=== PATIENT | female | born 1985 | race Caucasian/White ===

== ENCOUNTER 2017-03-23 16:28 | Inpatient (IN) | payer OTHER ==
[~2017-03-23] VITALS: Ht 160 cm; Wt 96.9 kg
[~2017-03-23 16:28] MED LIST: ALBU4 PO; ALBU90OI61 INH; AMIT10 PO; Augmentin 875-1 EACH PO; BUPR100 PO; BUPRENORPHINE HC2 MG SL; BUPRENORPHINE HC8 MG PO; BUSP10 PO; Budeprion Sr150 MG PO; Bupropion HCl100 M1 PO; CLON.1 PO; CODACE15 PO; CODACE30 PO; Catapres0.1 MG PO; Crutch1 EACH MISC; GABA800 PO; GUAI600T33 PO; IBUP400 PO; IBUP800 PO; IRON325 MG PO; LEVO750 PO; Neurontin 300300 MG PO; Norco 5-325 Ta1 EACH PO; PRED20 PO; PRENATAL VITAM1 EAC1 PO; PROM25 PO; QUET100 PO; RANI150 PO; Seroquel50 MG PO; Ultram50 MG PO; VARE1 PO; Veetids 500500 MG PO; Verotin-Gr Cap1 EACH PO; Vistaril25 MG PO; Zofran Odt4 MG SL
[2017-03-23 17:06] LABS: PCO2 Arterial 37.7 mmHg (35-45); PO2 Arterial 62.7 mmHg (80-100); pH Blood Arterial 7.36 (7.35-7.45)
[2017-03-23 17:06] LABS: BASOPHILS ABSOLUTE AUTO 0.09 K/mm3 (0.00-0.23); BASOPHILS PERCENT AUTO 0 % (0-2); Hematocrit 41.8 % (33.0-51.0); Hemoglobin 13.8 g/dL (11.5-16.0); LYMPHOCYTES ABSOLUTE AUTO 1.33 K/mm3 (0.84-5.20); LYMPHOCYTES PERCENT AUTO 6 % (21-46); MONOCYTES ABSOLUTE AUTO 0.53 K/mm3 (0.16-1.47); MONOCYTES PERCENT AUTO 2 % (4-13); Mean Corpuscular HGB 30.3 pg (26.0-34.0); Mean Corpuscular Volume 92 fL (80-100); Mean Platelet Volume 10.8 fL (9.1-12.4); Platelet Count 317 K/mm3 (150-400); RDW Coefficient Variation 15.9 % (11.7-14.2); RDW Standard Deviation 53.5 fL (35.1-46.3); Red Blood Cell Count 4.56 M/mm3 (3.80-5.20); White Blood Cell Count 23.15 K/mm3 (4.00-11.30)
[2017-03-23 17:09] LABS: EOSINOPHILS ABSOLUTE AUTO 0.02 K/mm3 (0.00-0.68); EOSINOPHILS PERCENT AUTO 0 % (0-6); IMMATURE GRAN ABSOLUTE AUTO 0.18 K/mm3 (0.00-0.10); IMMATURE GRAN PERCENT AUTO 1 % (0-1); NEUTROPHILS PERCENT AUTO 91 % (41-73)
[2017-03-23] MEDS ORDERED: FLUO10 PO (17:10)
[2017-03-23] MEDS ORDERED: SUBOXONE 8 MG-1 EACH SL (17:11)
[2017-03-23 17:28] LABS: Alanine Aminotransfer (ALT/SGP 31 U/L (12-78); Albumin, Blood 3.1 g/dL (3.4-5.0); Albumin/Globulin Ratio 0.7 (0.8-1.8); Alk Phos 200 U/L (50-136); Anion Gap 12 mmol/L (6-16); Aspartate Aminotrans (AST/SGOT 77 U/L (12-37); Bilirubin, Total 0.4 mg/dL (0.1-1.0); Blood Urea Nitrogen 6 mg/dL (8-24); Bun/Creatinine Ratio 13.4 (12.0-20.0); CO2, Blood 19 mmol/L (21-32); Calcium, Blood 8.6 mg/dL (8.5-10.1); Chloride, Blood 105 mmol/L (98-108); Creatinine, Blood 0.45 mg/dL (0.40-1.00); Globulin, Blood 4.5 g/dL (2.2-4.0); Glomerular Filtration Rate >60 (60-); Glucose, Blood 77 mg/dL (70-99); Sodium, Blood 136 mmol/L (136-145); Total Protein, Blood 7.6 g/dL (6.4-8.2)
[2017-03-23 17:29] LABS: Troponin I <0.015 ng/mL (0.000-0.040)
[2017-03-23 19:43] LABS: Influenza A Negative (NEGATIVE); Influenza B Negative (NEGATIVE)
[2017-03-23 22:29] LABS: Source, Urine Catheter
[2017-03-23 22:33] LABS: Bilirubin, Urine Neg (Neg); Blood, Urine Neg (Neg); Glucose Qualitative, Urine Neg (Neg); Ketones, Urine 2+ (Neg); Leukocyte Esterase, Urine Neg (Neg); Nitrite, Urine Neg (Neg); Protein, Urine 1+ (Neg); Specific Gravity, Urine 1.005 (1.003-1.022); Urobilinogen, Urine NORM (Normal); pH, Urine 6.5 (5.0-8.0)
[2017-03-23 22:34] LABS: Appearance, Urine Clear (Clear); Color, Urine Yellow (P-Yellow)
[2017-03-23 22:48] LABS: U Amphetamine Screen Not Detected; U Barbituate Screen Not Detected; U Benzodiazapine Screen Not Detected; U Buprenorphine Screen DETECTED; U Cannabinoids Screen Not Detected; U Cocaine Screen Not Detected; U Methadone Screen Not Detected; U Methamphetamine Screen Not Detected; U Opiates Screen Not Detected; U Oxycodone Screen Not Detected; U Phencyclidine Screen Not Detected; U Propoxyphene Screen Not Detected
[2017-03-24 03:50] LABS: BASOPHILS ABSOLUTE AUTO 0.03 K/mm3 (0.00-0.23); BASOPHILS PERCENT AUTO 0 % (0-2); EOSINOPHILS PERCENT AUTO 0 % (0-6); Hematocrit 38.6 % (33.0-51.0); Hemoglobin 12.5 g/dL (11.5-16.0); IMMATURE GRAN ABSOLUTE AUTO 0.11 K/mm3 (0.00-0.10); IMMATURE GRAN PERCENT AUTO 1 % (0-1); LYMPHOCYTES ABSOLUTE AUTO 0.74 K/mm3 (0.84-5.20); LYMPHOCYTES PERCENT AUTO 5 % (21-46); MONOCYTES ABSOLUTE AUTO 0.19 K/mm3 (0.16-1.47); MONOCYTES PERCENT AUTO 1 % (4-13); Mean Corpuscular HGB 29.8 pg (26.0-34.0); Mean Corpuscular HGB Conc 32.4 g/dL (31.5-36.5); Mean Corpuscular Volume 92 fL (80-100); Mean Platelet Volume 11.2 fL (9.1-12.4); NEUTROPHILS ABSOLUTE AUTO 15.31 K/mm3 (1.96-9.15); NEUTROPHILS PERCENT AUTO 93 % (41-73); Platelet Count 243 K/mm3 (150-400); RDW Standard Deviation 53.9 fL (35.1-46.3); White Blood Cell Count 16.38 K/mm3 (4.00-11.30)
[2017-03-24 04:11] LABS: Alanine Aminotransfer (ALT/SGP 24 U/L (12-78); Albumin, Blood 2.5 g/dL (3.4-5.0); Albumin/Globulin Ratio 0.6 (0.8-1.8); Alk Phos 159 U/L (50-136); Anion Gap 6 mmol/L (6-16); Aspartate Aminotrans (AST/SGOT 50 U/L (12-37); Bilirubin, Total 0.3 mg/dL (0.1-1.0); Blood Urea Nitrogen 6 mg/dL (8-24); Bun/Creatinine Ratio 13.3 (12.0-20.0); CO2, Blood 25 mmol/L (21-32); Calcium, Blood 7.8 mg/dL (8.5-10.1); Chloride, Blood 110 mmol/L (98-108); Creatinine, Blood 0.45 mg/dL (0.40-1.00); Globulin, Blood 4.1 g/dL (2.2-4.0); Glomerular Filtration Rate >60 (60-); Glucose, Blood 141 mg/dL (70-99); Potassium, Blood 3.9 mmol/L (3.5-5.5); Sodium, Blood 141 mmol/L (136-145); Total Protein, Blood 6.6 g/dL (6.4-8.2)
[2017-03-24 12:08] LABS: Vancomycin, Trough 12.3 ug/mL (5.0-10.0)
[2017-03-24 14:46] LABS: Adenovirus Not Detected (NOT DETECT)
[2017-03-24 14:47] LABS: Bordetella pertussis Not Detected (NOT DETECT); Chlamydophila pneumoniae Not Detected (NOT DETECT); Coronavirus 229E Not Detected (NOT DETECT); Coronavirus NL63 Not Detected (NOT DETECT); Coronavirus OC43 Not Detected (NOT DETECT); Human Metapneumovirus Not Detected (NOT DETECT); Human Rhinovirus/Enterovirus Not Detected (NOT DETECT); Influenza A/2009-H1 Not Detected (NOT DETECT); Influenza A/H1 Not Detected (NOT DETECT); Influenza A/H3 Not Detected (NOT DETECT); Influenza B Not Detected (NOT DETECT); Mycoplasma pneumoniae Not Detected (NOT DETECT); Parainfluenza Virus 1 Not Detected (NOT DETECT); Parainfluenza Virus 2 Not Detected (NOT DETECT); Parainfluenza Virus 3 Not Detected (NOT DETECT); Parainfluenza Virus 4 Not Detected (NOT DETECT); Respiratory Syncytial Virus Not Detected (NOT DETECT)
[2017-03-24 18:07] LABS: Influenza A Not Detected (NOT DETECT)
[2017-03-24 18:08] LABS: Coronavirus HKU1 Detected (NOT DETECT)
[2017-03-25 02:50] LABS: M. pneumoniae Ab, IgG 0.328 U/L (<0.100); M. pneumoniae Ab, IgM 0.379 U/L (<0.770)
[2017-03-25 04:35] LABS: BASOPHILS ABSOLUTE AUTO 0.02 K/mm3 (0.00-0.23); BASOPHILS PERCENT AUTO 0 % (0-2); EOSINOPHILS PERCENT AUTO 0 % (0-6); Hematocrit 34.5 % (33.0-51.0); Hemoglobin 10.8 g/dL (11.5-16.0); IMMATURE GRAN ABSOLUTE AUTO 0.14 K/mm3 (0.00-0.10); IMMATURE GRAN PERCENT AUTO 1 % (0-1); LYMPHOCYTES PERCENT AUTO 4 % (21-46); MONOCYTES ABSOLUTE AUTO 0.29 K/mm3 (0.16-1.47); MONOCYTES PERCENT AUTO 2 % (4-13); Mean Corpuscular HGB 29.7 pg (26.0-34.0); Mean Corpuscular HGB Conc 31.3 g/dL (31.5-36.5); Mean Platelet Volume 11.1 fL (9.1-12.4); NEUTROPHILS ABSOLUTE AUTO 15.23 K/mm3 (1.96-9.15); NEUTROPHILS PERCENT AUTO 94 % (41-73); Platelet Count 233 K/mm3 (150-400); RDW Coefficient Variation 16.3 % (11.7-14.2); RDW Standard Deviation 57.3 fL (35.1-46.3); Red Blood Cell Count 3.64 M/mm3 (3.80-5.20); White Blood Cell Count 16.28 K/mm3 (4.00-11.30)
[2017-03-25 04:52] LABS: Mean Corpuscular Volume 95 fL (80-100)
[2017-03-25 04:59] LABS: Alanine Aminotransfer (ALT/SGP 19 U/L (12-78); Albumin, Blood 2.3 g/dL (3.4-5.0); Albumin/Globulin Ratio 0.6 (0.8-1.8); Alk Phos 124 U/L (50-136); Anion Gap 6 mmol/L (6-16); Aspartate Aminotrans (AST/SGOT 38 U/L (12-37); Bilirubin, Total 0.2 mg/dL (0.1-1.0); Blood Urea Nitrogen 9 mg/dL (8-24); Bun/Creatinine Ratio 20.3 (12.0-20.0); CO2, Blood 27 mmol/L (21-32); Calcium, Blood 7.8 mg/dL (8.5-10.1); Chloride, Blood 111 mmol/L (98-108); Creatinine, Blood 0.44 mg/dL (0.40-1.00); Globulin, Blood 3.8 g/dL (2.2-4.0); Glomerular Filtration Rate >60 (60-); Glucose, Blood 128 mg/dL (70-99); Magnesium, Blood 2.2 mg/dL (1.6-2.4); Sodium, Blood 144 mmol/L (136-145); Total Protein, Blood 6.1 g/dL (6.4-8.2)
[2017-03-25 18:07] LABS: RNP/SM Ab IgG 0.4 AI (<1.0)
[2017-03-25 18:32] LABS: C3 129 mg/dL (90-200); C4 25.6 mg/dL (15.0-55.0)
[2017-03-25 22:46] LABS: PCO2 Arterial 45.1 mmHg (35-45); PO2 Arterial 114 mmHg (80-100); pH Blood Arterial 7.39 (7.35-7.45)
[2017-03-26 04:22] LABS: BASOPHILS ABSOLUTE AUTO 0.01 K/mm3 (0.00-0.23); BASOPHILS PERCENT AUTO 0 % (0-2); EOSINOPHILS ABSOLUTE AUTO 0.01 K/mm3 (0.00-0.68); EOSINOPHILS PERCENT AUTO 0 % (0-6); Hematocrit 35.2 % (33.0-51.0); Hemoglobin 11.2 g/dL (11.5-16.0); IMMATURE GRAN ABSOLUTE AUTO 0.11 K/mm3 (0.00-0.10); IMMATURE GRAN PERCENT AUTO 1 % (0-1); LYMPHOCYTES ABSOLUTE AUTO 0.56 K/mm3 (0.84-5.20); LYMPHOCYTES PERCENT AUTO 7 % (21-46); MONOCYTES ABSOLUTE AUTO 0.14 K/mm3 (0.16-1.47); MONOCYTES PERCENT AUTO 2 % (4-13); Mean Corpuscular HGB 29.9 pg (26.0-34.0); Mean Corpuscular HGB Conc 31.8 g/dL (31.5-36.5); Mean Corpuscular Volume 94 fL (80-100); Mean Platelet Volume 10.6 fL (9.1-12.4); NEUTROPHILS ABSOLUTE AUTO 7.52 K/mm3 (1.96-9.15); NEUTROPHILS PERCENT AUTO 90 % (41-73); Platelet Count 225 K/mm3 (150-400); RDW Coefficient Variation 16.6 % (11.7-14.2); RDW Standard Deviation 56.4 fL (35.1-46.3); Red Blood Cell Count 3.75 M/mm3 (3.80-5.20); White Blood Cell Count 8.35 K/mm3 (4.00-11.30)
[2017-03-26 04:38] LABS: Anion Gap 6 mmol/L (6-16); Blood Urea Nitrogen 7 mg/dL (8-24); Bun/Creatinine Ratio 12.4 (12.0-20.0); CO2, Blood 28 mmol/L (21-32); Calcium, Blood 8.2 mg/dL (8.5-10.1); Chloride, Blood 110 mmol/L (98-108); Creatinine, Blood 0.57 mg/dL (0.40-1.00); Glomerular Filtration Rate >60 (60-); Glucose, Blood 129 mg/dL (70-99); Magnesium, Blood 2.2 mg/dL (1.6-2.4); Phosphorus, Blood 3.2 mg/dL (2.5-4.9); Potassium, Blood 4.1 mmol/L (3.5-5.5); Sodium, Blood 144 mmol/L (136-145)
[2017-03-27 04:02] LABS: BASOPHILS PERCENT AUTO 0 % (0-2); EOSINOPHILS PERCENT AUTO 0 % (0-6); IMMATURE GRAN ABSOLUTE AUTO 0.13 K/mm3 (0.00-0.10); IMMATURE GRAN PERCENT AUTO 2 % (0-1); LYMPHOCYTES ABSOLUTE AUTO 0.64 K/mm3 (0.84-5.20); LYMPHOCYTES PERCENT AUTO 10 % (21-46); MONOCYTES ABSOLUTE AUTO 0.23 K/mm3 (0.16-1.47); MONOCYTES PERCENT AUTO 4 % (4-13); Mean Corpuscular HGB 29.6 pg (26.0-34.0); Mean Corpuscular HGB Conc 31.4 g/dL (31.5-36.5); Mean Corpuscular Volume 94 fL (80-100); NEUTROPHILS ABSOLUTE AUTO 5.35 K/mm3 (1.96-9.15); NEUTROPHILS PERCENT AUTO 84 % (41-73); Platelet Count 257 K/mm3 (150-400); RDW Coefficient Variation 16.6 % (11.7-14.2); RDW Standard Deviation 56.2 fL (35.1-46.3); Red Blood Cell Count 3.72 M/mm3 (3.80-5.20); White Blood Cell Count 6.35 K/mm3 (4.00-11.30)
[2017-03-27 04:22] LABS: Alanine Aminotransfer (ALT/SGP 34 U/L (12-78); Albumin, Blood 2.5 g/dL (3.4-5.0); Albumin/Globulin Ratio 0.6 (0.8-1.8); Alk Phos 104 U/L (50-136); Anion Gap 6 mmol/L (6-16); Aspartate Aminotrans (AST/SGOT 41 U/L (12-37); Bilirubin, Total 0.3 mg/dL (0.1-1.0); Blood Urea Nitrogen 13 mg/dL (8-24); Bun/Creatinine Ratio 26.7 (12.0-20.0); CO2, Blood 32 mmol/L (21-32); Calcium, Blood 8.2 mg/dL (8.5-10.1); Chloride, Blood 108 mmol/L (98-108); Creatinine, Blood 0.49 mg/dL (0.40-1.00); Globulin, Blood 4.1 g/dL (2.2-4.0); Glomerular Filtration Rate >60 (60-); Glucose, Blood 137 mg/dL (70-99); Magnesium, Blood 2.4 mg/dL (1.6-2.4); Phosphorus, Blood 3.8 mg/dL (2.5-4.9); Sodium, Blood 146 mmol/L (136-145); Total Protein, Blood 6.6 g/dL (6.4-8.2)
[2017-03-27 04:28] LABS: Triglycerides 154 mg/dL (30-140)
[2017-03-27 04:31] LABS: PO2 Arterial 65.5 mmHg (80-100); pH Blood Arterial 7.47 (7.35-7.45)
[2017-03-27 04:55] LABS: C3 139 mg/dL (90-200); C4 27.8 mg/dL (15.0-55.0)
[2017-03-27 10:28] LABS: RNP/SM Ab IgG 0.4 AI (<1.0)
[2017-03-28 03:45] LABS: BASOPHILS ABSOLUTE AUTO 0.01 K/mm3 (0.00-0.23); BASOPHILS PERCENT AUTO 0 % (0-2); EOSINOPHILS PERCENT AUTO 0 % (0-6); Hematocrit 36.5 % (33.0-51.0); Hemoglobin 11.5 g/dL (11.5-16.0); IMMATURE GRAN ABSOLUTE AUTO 0.23 K/mm3 (0.00-0.10); IMMATURE GRAN PERCENT AUTO 3 % (0-1); LYMPHOCYTES PERCENT AUTO 11 % (21-46); MONOCYTES ABSOLUTE AUTO 0.43 K/mm3 (0.16-1.47); MONOCYTES PERCENT AUTO 5 % (4-13); Mean Corpuscular HGB 29.8 pg (26.0-34.0); Mean Corpuscular HGB Conc 31.5 g/dL (31.5-36.5); Mean Corpuscular Volume 95 fL (80-100); NEUTROPHILS ABSOLUTE AUTO 7.47 K/mm3 (1.96-9.15); NEUTROPHILS PERCENT AUTO 82 % (41-73); NRBC ABSOLUTE 0.02 K/mm3 (0.00-0.02); NRBC Auto 0.2 /100 WBC (0.0-0.2); Platelet Count 239 K/mm3 (150-400); RDW Coefficient Variation 16.5 % (11.7-14.2); RDW Standard Deviation 57.1 fL (35.1-46.3); Red Blood Cell Count 3.86 M/mm3 (3.80-5.20); White Blood Cell Count 9.14 K/mm3 (4.00-11.30)
[2017-03-28 04:19] LABS: Anion Gap 6 mmol/L (6-16); Blood Urea Nitrogen 18 mg/dL (8-24); Bun/Creatinine Ratio 35.3 (12.0-20.0); CO2, Blood 32 mmol/L (21-32); Calcium, Blood 8.4 mg/dL (8.5-10.1); Chloride, Blood 105 mmol/L (98-108); Creatinine, Blood 0.51 mg/dL (0.40-1.00); Glomerular Filtration Rate >60 (60-); Glucose, Blood 129 mg/dL (70-99); Magnesium, Blood 2.5 mg/dL (1.6-2.4); Phosphorus, Blood 4.4 mg/dL (2.5-4.9); Potassium, Blood 4.5 mmol/L (3.5-5.5); Sodium, Blood 143 mmol/L (136-145)
[2017-03-28 04:35] LABS: PCO2 Arterial 43.6 mmHg (35-45); PO2 Arterial 64.6 mmHg (80-100); pH Blood Arterial 7.47 (7.35-7.45)
[2017-03-29 04:37] LABS: BASOPHILS ABSOLUTE AUTO 0.01 K/mm3 (0.00-0.23); BASOPHILS PERCENT AUTO 0 % (0-2); EOSINOPHILS PERCENT AUTO 0 % (0-6); Hemoglobin 11.1 g/dL (11.5-16.0); IMMATURE GRAN ABSOLUTE AUTO 0.27 K/mm3 (0.00-0.10); IMMATURE GRAN PERCENT AUTO 3 % (0-1); LYMPHOCYTES ABSOLUTE AUTO 0.89 K/mm3 (0.84-5.20); LYMPHOCYTES PERCENT AUTO 11 % (21-46); MONOCYTES ABSOLUTE AUTO 0.22 K/mm3 (0.16-1.47); MONOCYTES PERCENT AUTO 3 % (4-13); Mean Corpuscular HGB 29.8 pg (26.0-34.0); Mean Corpuscular HGB Conc 31.7 g/dL (31.5-36.5); Mean Corpuscular Volume 94 fL (80-100); Mean Platelet Volume 10.5 fL (9.1-12.4); NEUTROPHILS ABSOLUTE AUTO 6.78 K/mm3 (1.96-9.15); NEUTROPHILS PERCENT AUTO 83 % (41-73); Platelet Count 236 K/mm3 (150-400); RDW Coefficient Variation 16.1 % (11.7-14.2); Red Blood Cell Count 3.73 M/mm3 (3.80-5.20); White Blood Cell Count 8.17 K/mm3 (4.00-11.30)
[2017-03-29 05:01] LABS: Alanine Aminotransfer (ALT/SGP 47 U/L (12-78); Albumin, Blood 2.7 g/dL (3.4-5.0); Albumin/Globulin Ratio 0.7 (0.8-1.8); Alk Phos 84 U/L (50-136); Anion Gap 6 mmol/L (6-16); Aspartate Aminotrans (AST/SGOT 21 U/L (12-37); Bilirubin, Total 0.2 mg/dL (0.1-1.0); Blood Urea Nitrogen 14 mg/dL (8-24); Bun/Creatinine Ratio 28.5 (12.0-20.0); CO2, Blood 33 mmol/L (21-32); Calcium, Blood 8.3 mg/dL (8.5-10.1); Chloride, Blood 104 mmol/L (98-108); Creatinine, Blood 0.49 mg/dL (0.40-1.00); Globulin, Blood 3.9 g/dL (2.2-4.0); Glomerular Filtration Rate >60 (60-); Glucose, Blood 134 mg/dL (70-99); Potassium, Blood 3.9 mmol/L (3.5-5.5); Sodium, Blood 143 mmol/L (136-145); Total Protein, Blood 6.6 g/dL (6.4-8.2)
[2017-03-29 05:21] LABS: PCO2 Arterial 41.8 mmHg (35-45); PO2 Arterial 64.8 mmHg (80-100)
[2017-03-29 17:06] LABS: Anion Gap 7 mmol/L (6-16); Blood Urea Nitrogen 15 mg/dL (8-24); Bun/Creatinine Ratio 36.1 (12.0-20.0); CO2, Blood 31 mmol/L (21-32); Calcium, Blood 8.3 mg/dL (8.5-10.1); Chloride, Blood 105 mmol/L (98-108); Creatinine, Blood 0.42 mg/dL (0.40-1.00); Glomerular Filtration Rate >60 (60-); Glucose, Blood 125 mg/dL (70-99); Magnesium, Blood 2.2 mg/dL (1.6-2.4); Phosphorus, Blood 3.6 mg/dL (2.5-4.9); Potassium, Blood 3.9 mmol/L (3.5-5.5); Sodium, Blood 143 mmol/L (136-145)
[2017-03-30 04:02] LABS: Hematocrit 35.8 % (33.0-51.0); Hemoglobin 11.5 g/dL (11.5-16.0); Mean Corpuscular HGB 29.9 pg (26.0-34.0); Mean Corpuscular HGB Conc 32.1 g/dL (31.5-36.5); Mean Corpuscular Volume 93 fL (80-100); Mean Platelet Volume 10.8 fL (9.1-12.4); Platelet Count 254 K/mm3 (150-400); RDW Coefficient Variation 15.9 % (11.7-14.2); RDW Standard Deviation 54.4 fL (35.1-46.3); Red Blood Cell Count 3.85 M/mm3 (3.80-5.20); White Blood Cell Count 8.79 K/mm3 (4.00-11.30)
[2017-03-30 04:23] LABS: Anion Gap 6 mmol/L (6-16); Blood Urea Nitrogen 16 mg/dL (8-24); Bun/Creatinine Ratio 36.7 (12.0-20.0); CO2, Blood 32 mmol/L (21-32); Chloride, Blood 105 mmol/L (98-108); Creatinine, Blood 0.44 mg/dL (0.40-1.00); Glomerular Filtration Rate >60 (60-); Glucose, Blood 125 mg/dL (70-99); Magnesium, Blood 2.3 mg/dL (1.6-2.4); Sodium, Blood 143 mmol/L (136-145)
[2017-03-30 04:37] LABS: PCO2 Arterial 41.3 mmHg (35-45); PO2 Arterial 72.3 mmHg (80-100); pH Blood Arterial 7.49 (7.35-7.45)
[2017-03-30 04:56] LABS: BAND PERCENT MAN 1 % (0-8); BASOPHILS PERCENT MAN 0 % (0-2); EOSINOPHILS PERCENT MAN 0 % (0-6); LYMPHOCYTES ABSOLUTE MAN 0.35 K/mm3 (0.84-5.20); LYMPHOCYTES PERCENT MAN 4 % (21-46); MONOCYTES ABSOLUTE MAN 0.17 K/mm3 (0.16-1.47); MONOCYTES PERCENT MAN 2 % (4-13); MYELOCYTE ABSOLUTE MAN 0.08 K/mm3 (0.00-0.00); MYELOCYTE PERCENT MAN 1 % (0-0); NEUTROPHILS ABSOLUTE MAN 8.17 K/mm3 (1.96-9.15); SEG NEUTROPHILS PERCENT MAN 92 % (41-73); TOTAL CELLS COUNTED 100
[2017-03-31 04:49] LABS: BASOPHILS ABSOLUTE AUTO 0.02 K/mm3 (0.00-0.23); BASOPHILS PERCENT AUTO 0 % (0-2); EOSINOPHILS PERCENT AUTO 0 % (0-6); Hematocrit 37.9 % (33.0-51.0); IMMATURE GRAN ABSOLUTE AUTO 0.23 K/mm3 (0.00-0.10); IMMATURE GRAN PERCENT AUTO 3 % (0-1); LYMPHOCYTES ABSOLUTE AUTO 0.96 K/mm3 (0.84-5.20); LYMPHOCYTES PERCENT AUTO 11 % (21-46); MONOCYTES ABSOLUTE AUTO 0.27 K/mm3 (0.16-1.47); MONOCYTES PERCENT AUTO 3 % (4-13); Mean Corpuscular HGB 29.2 pg (26.0-34.0); Mean Corpuscular HGB Conc 31.7 g/dL (31.5-36.5); Mean Corpuscular Volume 92 fL (80-100); Mean Platelet Volume 10.6 fL (9.1-12.4); NEUTROPHILS ABSOLUTE AUTO 6.95 K/mm3 (1.96-9.15); NEUTROPHILS PERCENT AUTO 83 % (41-73); Platelet Count 248 K/mm3 (150-400); RDW Coefficient Variation 15.5 % (11.7-14.2); RDW Standard Deviation 53.1 fL (35.1-46.3); Red Blood Cell Count 4.11 M/mm3 (3.80-5.20); White Blood Cell Count 8.43 K/mm3 (4.00-11.30)
[2017-03-31 05:00] LABS: PCO2 Arterial 41.6 mmHg (35-45); PO2 Arterial 69.2 mmHg (80-100); pH Blood Arterial 7.49 (7.35-7.45)
[2017-03-31 05:09] LABS: Alanine Aminotransfer (ALT/SGP 30 U/L (12-78); Albumin, Blood 2.7 g/dL (3.4-5.0); Albumin/Globulin Ratio 0.7 (0.8-1.8); Alk Phos 75 U/L (50-136); Anion Gap 7 mmol/L (6-16); Aspartate Aminotrans (AST/SGOT 9 U/L (12-37); Bilirubin, Total 0.3 mg/dL (0.1-1.0); Blood Urea Nitrogen 16 mg/dL (8-24); CO2, Blood 31 mmol/L (21-32); Calcium, Blood 8.3 mg/dL (8.5-10.1); Chloride, Blood 104 mmol/L (98-108); Creatinine, Blood 0.49 mg/dL (0.40-1.00); Glomerular Filtration Rate >60 (60-); Glucose, Blood 114 mg/dL (70-99); Magnesium, Blood 2.2 mg/dL (1.6-2.4); Phosphorus, Blood 3.5 mg/dL (2.5-4.9); Potassium, Blood 3.9 mmol/L (3.5-5.5); Sodium, Blood 142 mmol/L (136-145); Total Protein, Blood 6.7 g/dL (6.4-8.2)
[2017-04-01 04:05] LABS: BASOPHILS ABSOLUTE AUTO 0.01 K/mm3 (0.00-0.23); BASOPHILS PERCENT AUTO 0 % (0-2); EOSINOPHILS PERCENT AUTO 0 % (0-6); Hematocrit 37.7 % (33.0-51.0); Hemoglobin 12.4 g/dL (11.5-16.0); IMMATURE GRAN ABSOLUTE AUTO 0.14 K/mm3 (0.00-0.10); IMMATURE GRAN PERCENT AUTO 2 % (0-1); LYMPHOCYTES ABSOLUTE AUTO 0.82 K/mm3 (0.84-5.20); LYMPHOCYTES PERCENT AUTO 10 % (21-46); MONOCYTES ABSOLUTE AUTO 0.22 K/mm3 (0.16-1.47); MONOCYTES PERCENT AUTO 3 % (4-13); Mean Corpuscular HGB Conc 32.9 g/dL (31.5-36.5); Mean Corpuscular Volume 91 fL (80-100); Mean Platelet Volume 10.8 fL (9.1-12.4); NEUTROPHILS ABSOLUTE AUTO 7.08 K/mm3 (1.96-9.15); NEUTROPHILS PERCENT AUTO 86 % (41-73); Platelet Count 246 K/mm3 (150-400); RDW Standard Deviation 50.4 fL (35.1-46.3); Red Blood Cell Count 4.14 M/mm3 (3.80-5.20); White Blood Cell Count 8.27 K/mm3 (4.00-11.30)
[2017-04-01 04:26] LABS: Anion Gap 6 mmol/L (6-16); Blood Urea Nitrogen 17 mg/dL (8-24); Bun/Creatinine Ratio 41.1 (12.0-20.0); CO2, Blood 31 mmol/L (21-32); Calcium, Blood 8.3 mg/dL (8.5-10.1); Chloride, Blood 105 mmol/L (98-108); Creatinine, Blood 0.41 mg/dL (0.40-1.00); Glomerular Filtration Rate >60 (60-); Glucose, Blood 100 mg/dL (70-99); Magnesium, Blood 2.2 mg/dL (1.6-2.4); Phosphorus, Blood 3.3 mg/dL (2.5-4.9); Potassium, Blood 3.6 mmol/L (3.5-5.5); Sodium, Blood 142 mmol/L (136-145)
[2017-04-02 05:38] LABS: BASOPHILS ABSOLUTE AUTO 0.01 K/mm3 (0.00-0.23); BASOPHILS PERCENT AUTO 0 % (0-2); EOSINOPHILS PERCENT AUTO 0 % (0-6); Hematocrit 40.3 % (33.0-51.0); Hemoglobin 13.1 g/dL (11.5-16.0); IMMATURE GRAN ABSOLUTE AUTO 0.17 K/mm3 (0.00-0.10); IMMATURE GRAN PERCENT AUTO 1 % (0-1); LYMPHOCYTES ABSOLUTE AUTO 0.94 K/mm3 (0.84-5.20); LYMPHOCYTES PERCENT AUTO 7 % (21-46); MONOCYTES ABSOLUTE AUTO 0.36 K/mm3 (0.16-1.47); MONOCYTES PERCENT AUTO 3 % (4-13); Mean Corpuscular HGB 29.5 pg (26.0-34.0); Mean Corpuscular HGB Conc 32.5 g/dL (31.5-36.5); Mean Corpuscular Volume 91 fL (80-100); Mean Platelet Volume 10.9 fL (9.1-12.4); NEUTROPHILS ABSOLUTE AUTO 11.23 K/mm3 (1.96-9.15); NEUTROPHILS PERCENT AUTO 88 % (41-73); Platelet Count 343 K/mm3 (150-400); RDW Coefficient Variation 14.7 % (11.7-14.2); RDW Standard Deviation 49.8 fL (35.1-46.3); Red Blood Cell Count 4.44 M/mm3 (3.80-5.20); White Blood Cell Count 12.71 K/mm3 (4.00-11.30)
[2017-04-02 06:08] LABS: Alanine Aminotransfer (ALT/SGP 26 U/L (12-78); Albumin, Blood 2.6 g/dL (3.4-5.0); Albumin/Globulin Ratio 0.7 (0.8-1.8); Alk Phos 73 U/L (50-136); Anion Gap 7 mmol/L (6-16); Aspartate Aminotrans (AST/SGOT 11 U/L (12-37); Bilirubin, Total 0.2 mg/dL (0.1-1.0); Blood Urea Nitrogen 20 mg/dL (8-24); Bun/Creatinine Ratio 42.4 (12.0-20.0); CO2, Blood 28 mmol/L (21-32); Calcium, Blood 8.3 mg/dL (8.5-10.1); Chloride, Blood 106 mmol/L (98-108); Creatinine, Blood 0.47 mg/dL (0.40-1.00); Globulin, Blood 3.7 g/dL (2.2-4.0); Glomerular Filtration Rate >60 (60-); Glucose, Blood 120 mg/dL (70-99); Potassium, Blood 3.6 mmol/L (3.5-5.5); Sodium, Blood 141 mmol/L (136-145); Total Protein, Blood 6.3 g/dL (6.4-8.2)
[2017-04-02] MEDS ORDERED: LINE600 PO (12:33)
[2017-04-02] MEDS ORDERED: BUSP10 PO (12:33)
[2017-04-02] MEDS ORDERED: GUAI600T33 PO (12:33)
[2017-04-02] MEDS ORDERED: ONDA4 PO (12:34)
[2017-04-02] MEDS ORDERED: OMEPRAZOLE MAGN20 MG PO (12:34)
[2017-04-02] MEDS ORDERED: ALBU90OI6 INH (12:35)
[2017-04-02] MEDS ORDERED: PRED20 PO (12:38)
== END 2017-04-02 12:53 | disposition home or self-care (01) | DRG 870 ==
LOC: ER 16:28 → MEDS 17:34 → ICUW 17:34 → MEDS 04-01 14:56
PROVIDERS: Emergency Medicine; Family Medicine; Internal Medicine; Internal Medicine Critical Care Medicine; Internal Medicine Pulmonary Disease
PROC: 0BH17EZ Insertion of Endotracheal Airway into Trachea, Via Natural or Artificial Opening (ICD-10-PCS; principal; 2017-03-25)
PROC: 5A1955Z Respiratory Ventilation, Greater than 96 Consecutive Hours (ICD-10-PCS; 2017-03-25)
PROC: 5A09357 Assistance with Respiratory Ventilation, Less than 24 Consecutive Hours, Continuous Positive Airway Pressure (ICD-10-PCS; 2017-03-25)
PROC: 02HV33Z Insertion of Infusion Device into Superior Vena Cava, Percutaneous Approach (ICD-10-PCS; 2017-03-26)
DX: A41.9 Sepsis, unspecified organism (principal); J80 Acute respiratory distress syndrome; J18.9 Pneumonia, unspecified organism; F32.9 Major depressive disorder, single episode, unspecified; J45.909 Unspecified asthma, uncomplicated; F41.9 Anxiety disorder, unspecified; F11.21 Opioid dependence, in remission; G47.00 Insomnia, unspecified; F17.200 Nicotine dependence, unspecified, uncomplicated; E63.9 Nutritional deficiency, unspecified; E83.39 Other disorders of phosphorus metabolism; E66.9 Obesity, unspecified; Z22.322 Carrier or suspected carrier of Methicillin resistant Staphylococcus aureus; Z79.899 Other long term (current) drug therapy; Z88.6 Allergy status to analgesic agent; Z88.5 Allergy status to narcotic agent; Z68.36 Body mass index [BMI] 36.0-36.9, adult
CPT/HCPCS: 31500; 31720; 36415; 36569; 36600; 51703; 71045; 71046; 71260; 80048; 80053; 80202; 82164; 82330; 82803; 82947; 83516; 83605; 83735; 83880; 84100; 84478; 84484; 84703; 85007; 85025; 85027; 85379; 86160; 86225; 86235; 86704; 86738; 87040; 87070; 87077; 87147; 87186; 87205; 87389; 87449; 87486; 87581; 87633; 87798; 87804; 88184; 88185; 94002; 94003; 94640; 94660; 94760; 96361; 96365; 96366; 96368; 96375; 97161; 99285; C1751; C9113; G8978; G8979; J0360; J0456; J0696; J1630; J1650; J2060; J2405; J2543; J2920; J2930; J3010; J3370; J7030; J7050; Q9967

== ENCOUNTER 2018-03-31 17:24 | Inpatient (IN) | payer OTHER ==
[~2018-03-31] VITALS: Ht 157.5 cm; Wt 100.4 kg
[~2018-03-31 17:24] MED LIST changes: +ALBU90OI6 INH; +FLUO10 PO; +LINE600 PO; +OMEPRAZOLE MAGN20 MG PO; +ONDA4 PO; +SUBOXONE 8 MG-1 EACH SL
[2018-03-31 18:15] LABS: BASOPHILS ABSOLUTE AUTO 0.04 K/mm3 (0.00-0.23); BASOPHILS PERCENT AUTO 0 % (0-2); EOSINOPHILS ABSOLUTE AUTO 0.12 K/mm3 (0.00-0.68); EOSINOPHILS PERCENT AUTO 1 % (0-6); Hematocrit 38.7 % (33.0-51.0); Hemoglobin 12.5 g/dL (11.5-16.0); IMMATURE GRAN ABSOLUTE AUTO 0.11 K/mm3 (0.00-0.10); IMMATURE GRAN PERCENT AUTO 1 % (0-1); LYMPHOCYTES ABSOLUTE AUTO 1.54 K/mm3 (0.84-5.20); LYMPHOCYTES PERCENT AUTO 11 % (21-46); MONOCYTES ABSOLUTE AUTO 0.48 K/mm3 (0.16-1.47); MONOCYTES PERCENT AUTO 3 % (4-13); Mean Corpuscular HGB 28.9 pg (26.0-34.0); Mean Corpuscular HGB Conc 32.3 g/dL (31.5-36.5); Mean Corpuscular Volume 90 fL (80-100); Mean Platelet Volume 10.6 fL (9.1-12.4); NEUTROPHILS ABSOLUTE AUTO 12.42 K/mm3 (1.96-9.15); NEUTROPHILS PERCENT AUTO 84 % (41-73); Platelet Count 418 K/mm3 (150-400); RDW Coefficient Variation 12.2 % (11.7-14.2); RDW Standard Deviation 40.6 fL (35.1-46.3); Red Blood Cell Count 4.32 M/mm3 (3.80-5.20); White Blood Cell Count 14.71 K/mm3 (4.00-11.30)
[2018-03-31 18:26] LABS: Alanine Aminotransfer (ALT/SGP 17 U/L (12-78); Albumin, Blood 2.8 g/dL (3.4-5.0); Albumin/Globulin Ratio 0.6 (0.8-1.8); Alk Phos 180 U/L (50-136); Anion Gap 7 mmol/L (6-16); Aspartate Aminotrans (AST/SGOT 17 U/L (12-37); Beta HCG, Quantitative, Serum <1 mIU/mL (0-3); Bilirubin, Total 0.5 mg/dL (0.1-1.0); Blood Urea Nitrogen 8 mg/dL (8-24); Bun/Creatinine Ratio 14.5 (12.0-20.0); CO2, Blood 27 mmol/L (21-32); Calcium, Blood 8.8 mg/dL (8.5-10.1); Chloride, Blood 101 mmol/L (98-108); Creatinine, Blood 0.55 mg/dL (0.40-1.00); Glomerular Filtration Rate >60 (60-); Glucose, Blood 118 mg/dL (70-99); Potassium, Blood 3.3 mmol/L (3.5-5.5); Sodium, Blood 135 mmol/L (136-145); Total Protein, Blood 7.8 g/dL (6.4-8.2); Troponin I <0.015 ng/mL (0.000-0.040)
[2018-03-31 18:50] LABS: Base Excess Venous 3.2 mmol/L; Bicarbonate Venous 27.6 mmol/L (24.0-30.0); PCO2 Venous 31.8 mmHg (38-42); PO2 Venous 94.9 mmHg (38-42); pH Blood Venous 7.52 (7.34-7.37)
[2018-03-31 19:13] LABS: Influenza A Negative (NEGATIVE); Influenza B Negative (NEGATIVE)
--- NOTE | 2018-03-31 22:00 | NUR ---
ASSUMED PT CARE FROM FAUSTINO FERNANDEZ IN THE ED AT 2130 PT ARRIVED TO UNIT VIA STRETCHER. ADMITTED FOR PNEUMONIA WITH BIPAP IN PLACE WITH PRESSURE 10/5 AND 45% FIO2. OXYGEN SATURATIONS MAINTAINING AT 100%; RESP RATE 34-38. PT IS ALERT AND ORIENTED; ABLE TO MAKE NEEDS KNOWN. PT WAS HOOKED UP TO MONITORS WITH NSR NOTED; HR 70'S. SBP 120'S. PT HAD A 20G TO RIGHT HAND. 20G WAS STARTED TO LEFT UPPER ARM AND ORDERED ANTIBIOTICS WERE ADMINISTERED. ORDERS TO CONSULT DR. DOWNS; NOTIFED AT 2200. PT APPEARS COMFORTABLE AT THIS TIME. BIPAP IN PLACE. MOTHER AT BEDSIDE.
--- NOTE | 2018-03-31 22:15 | NUR ---
DR. DOWNS AT BEDSIDE FOR CONSULT.
--- NOTE | 2018-03-31 23:45 | NUR ---
PT TO CT
--- NOTE | 2018-04-01 00:05 | NUR ---
BACK FROM CT; SETTLED BACK INTO ROOM. PT'S MOM AT BEDSIDE
[2018-04-01 00:19] LABS: Bordetella pertussis Not Detected (NOT DETECT); Chlamydophila pneumoniae Not Detected (NOT DETECT); Coronavirus 229E Not Detected (NOT DETECT); Coronavirus HKU1 Not Detected (NOT DETECT); Coronavirus NL63 Not Detected (NOT DETECT); Coronavirus OC43 Not Detected (NOT DETECT); Human Metapneumovirus Not Detected (NOT DETECT); Human Rhinovirus/Enterovirus Detected (NOT DETECT); Influenza A Not Detected (NOT DETECT); Influenza A/2009-H1 Not Detected (NOT DETECT); Influenza A/H1 Not Detected (NOT DETECT); Influenza A/H3 Not Detected (NOT DETECT); Influenza B Not Detected (NOT DETECT); Parainfluenza Virus 1 Not Detected (NOT DETECT); Parainfluenza Virus 2 Not Detected (NOT DETECT); Parainfluenza Virus 3 Not Detected (NOT DETECT); Parainfluenza Virus 4 Not Detected (NOT DETECT); Respiratory Syncytial Virus Not Detected (NOT DETECT)
[2018-04-01 00:20] LABS: Mycoplasma pneumoniae Not Detected (NOT DETECT)
[2018-04-01 01:10] LABS: Adenovirus Not Detected (NOT DETECT)
[2018-04-01 01:18] LABS: U Amphetamine Screen DETECTED; U Barbituate Screen Not Detected; U Benzodiazapine Screen DETECTED; U Buprenorphine Screen DETECTED; U Cannabinoids Screen DETECTED; U Cocaine Screen Not Detected; U Methadone Screen Not Detected; U Methamphetamine Screen DETECTED; U Opiates Screen DETECTED; U Oxycodone Screen Not Detected; U Phencyclidine Screen Not Detected; U Propoxyphene Screen Not Detected
[2018-04-01 03:46] LABS: BASOPHILS ABSOLUTE AUTO 0.04 K/mm3 (0.00-0.23); BASOPHILS PERCENT AUTO 0 % (0-2); EOSINOPHILS PERCENT AUTO 0 % (0-6); Hematocrit 34.2 % (33.0-51.0); Hemoglobin 11.2 g/dL (11.5-16.0); IMMATURE GRAN ABSOLUTE AUTO 0.13 K/mm3 (0.00-0.10); IMMATURE GRAN PERCENT AUTO 1 % (0-1); LYMPHOCYTES ABSOLUTE AUTO 1.03 K/mm3 (0.84-5.20); LYMPHOCYTES PERCENT AUTO 5 % (21-46); MONOCYTES ABSOLUTE AUTO 0.13 K/mm3 (0.16-1.47); MONOCYTES PERCENT AUTO 1 % (4-13); Mean Corpuscular HGB 29.5 pg (26.0-34.0); Mean Corpuscular HGB Conc 32.7 g/dL (31.5-36.5); Mean Corpuscular Volume 90 fL (80-100); Mean Platelet Volume 10.4 fL (9.1-12.4); NEUTROPHILS ABSOLUTE AUTO 17.93 K/mm3 (1.96-9.15); NEUTROPHILS PERCENT AUTO 93 % (41-73); Platelet Count 373 K/mm3 (150-400); RDW Coefficient Variation 12.4 % (11.7-14.2); RDW Standard Deviation 40.8 fL (35.1-46.3); White Blood Cell Count 19.26 K/mm3 (4.00-11.30)
[2018-04-01 04:10] LABS: Alanine Aminotransfer (ALT/SGP 12 U/L (12-78); Albumin, Blood 2.4 g/dL (3.4-5.0); Albumin/Globulin Ratio 0.5 (0.8-1.8); Alk Phos 171 U/L (50-136); Anion Gap 9 mmol/L (6-16); Aspartate Aminotrans (AST/SGOT 16 U/L (12-37); Bilirubin, Total 0.4 mg/dL (0.1-1.0); Blood Urea Nitrogen 7 mg/dL (8-24); Bun/Creatinine Ratio 12.5 (12.0-20.0); CO2, Blood 24 mmol/L (21-32); Calcium, Blood 8.1 mg/dL (8.5-10.1); Chloride, Blood 107 mmol/L (98-108); Creatinine, Blood 0.56 mg/dL (0.40-1.00); Globulin, Blood 4.8 g/dL (2.2-4.0); Glomerular Filtration Rate >60 (60-); Glucose, Blood 115 mg/dL (70-99); Potassium, Blood 4.5 mmol/L (3.5-5.5); Sodium, Blood 140 mmol/L (136-145); Total Protein, Blood 7.2 g/dL (6.4-8.2)
--- NOTE | 2018-04-01 06:35 | NUR ---
END OF SHIFT SUMMARY PT HAS SLEPT MOST OF NIGHT MAINTAINING ADEQUATE OXYGEN SATURATIONS >91% ON BIPAP 10/5 WITH FIO2 OF 40%. RR 28-36. PT HAS BEEN IN NSR WITH A COUPLE EPISODES OF WAP NOTED. HR MAINTAINED BETWEEN 60-70. PT IS CONTINENT OF BOWEL AND BLADDER AND USES BED WINKLER. BRUISING, SCARS, AND SCABS SCATTERED T/O, BUT OVERALL SKIN IS CDI. 20G TO RIGHT HAND, WELL LEFT UPPER ARM. 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 MOTHER HAS BEEN AT BEDSIDE ALL NIGHT. NO C/O PAIN OR ANY DISCOMFORT. PT DOESN'T APPEAR TO BE IN ANY DISTRESS AT THIS TIME. PT HAS BEEN COMPLIANT WITH WEARING BIPAP ALL NIGHT. WILL CONTINUE TO MONITOR UNTIL REPORT HAS BEEN TO ONCOMING RN.
--- NOTE | 2018-04-01 08:00 | NUR ---
FEMALE PATIENT OFF THE BIPAP 10/5 AT 40% AND NOW ON 4L NC. LASTED 30 MINUTES THEN BACK ON BIPAP. EXP WHEEZES PAKO ON THE LEFT. MOTHER AT BEDSIDE. TAKING PO FLUIDS WELL. DR JAIMES THEN DR DOWNS IN TO EXAMINE PATIENT.
[2018-04-01] MEDS ORDERED: SUBOXONE 8 MG-1 EACH SL (09:03)
--- NOTE | 2018-04-01 12:02 | NUR ---
ECHOCARDIOGRAM COMPLETED
--- NOTE | 2018-04-01 12:22 | NUR ---
HAS BEEN BACK ON HER BIPAP OF 10/5 AND 40% FIO2. TAKING A BREAK AT THIS TIME AND PLACED ON OXYMIZER AT 4L WITH SPO2 OF 93% SPO2. TAKING SIPS OF COKE. DOES NOT FEEL LIKE EATING MUCH. STILL IN DROPLET ISOLATION FROM OLD MRSA INFECTION. SPUTUM OF THICK DARK BROWN. SPUTUM SPEC SENT TO LAB.
--- NOTE | 2018-04-01 14:46 | NUR ---
CONTS TO DOZE ON 4L OXYMIZER. WANTS A HAMBERGER. MOM WENT TO GET HER ONE.
--- NOTE | 2018-04-01 16:56 | NUR ---
ZOSYN RUNNING. SUBOXONE TAKEN PO WELL SOLUMEDROL WITH SOME ATIVAN. TURNS HERSELF SIDE TO SIDE WITH MIN HELP. ON OXYMIZER AT THIS TIME.
--- NOTE | 2018-04-01 17:46 | NUR ---
SLEEPING QUIETLY. DINNER AT BEDSIDE. NOT SURE SHE WANTS ANY YET. UP TO BSC TO X4. DOING MUCH BETTER EACH TIME. MOTHER AT BEDSIDE. ON 4L OXYMIZER AND DANNA WELL.
--- NOTE | 2018-04-01 19:44 | NUR ---
PATIENT RESTING QUIETLY BIOX 86-87% ON 5L/OXY WHEN FALLING TO SLEEP, BIPAP PLACED 10/5 FIO2 40% WITH SATS UP TO 98% WHILE AT REST. PATIENT AWAKENS TO SLIGHT STIMULI, REPOSITIONING SELF FOR COMFORT. LUNG SOUNDS CONTINUE TO HAVE WHEEZING T/O. PATIENT VERBALIZED SHE IS FEELING BETTER AND LESS SOB.
[2018-04-02 03:21] LABS: BASOPHILS ABSOLUTE AUTO 0.03 K/mm3 (0.00-0.23); BASOPHILS PERCENT AUTO 0 % (0-2); EOSINOPHILS PERCENT AUTO 0 % (0-6); Hematocrit 35.3 % (33.0-51.0); Hemoglobin 11.2 g/dL (11.5-16.0); IMMATURE GRAN ABSOLUTE AUTO 0.19 K/mm3 (0.00-0.10); IMMATURE GRAN PERCENT AUTO 1 % (0-1); LYMPHOCYTES ABSOLUTE AUTO 1.13 K/mm3 (0.84-5.20); LYMPHOCYTES PERCENT AUTO 6 % (21-46); MONOCYTES ABSOLUTE AUTO 0.37 K/mm3 (0.16-1.47); MONOCYTES PERCENT AUTO 2 % (4-13); Mean Corpuscular HGB 29.1 pg (26.0-34.0); Mean Corpuscular HGB Conc 31.7 g/dL (31.5-36.5); Mean Corpuscular Volume 92 fL (80-100); Mean Platelet Volume 10.4 fL (9.1-12.4); NEUTROPHILS ABSOLUTE AUTO 17.15 K/mm3 (1.96-9.15); NEUTROPHILS PERCENT AUTO 91 % (41-73); Platelet Count 392 K/mm3 (150-400); RDW Coefficient Variation 12.5 % (11.7-14.2); RDW Standard Deviation 41.7 fL (35.1-46.3); Red Blood Cell Count 3.85 M/mm3 (3.80-5.20); White Blood Cell Count 18.87 K/mm3 (4.00-11.30)
[2018-04-02 04:53] LABS: Anion Gap 5 mmol/L (6-16); Blood Urea Nitrogen 12 mg/dL (8-24); Bun/Creatinine Ratio 17.5 (12.0-20.0); CO2, Blood 28 mmol/L (21-32); Calcium, Blood 8.5 mg/dL (8.5-10.1); Chloride, Blood 108 mmol/L (98-108); Creatinine, Blood 0.69 mg/dL (0.40-1.00); Glomerular Filtration Rate >60 (60-); Glucose, Blood 148 mg/dL (70-99); Magnesium, Blood 2.6 mg/dL (1.6-2.4); Potassium, Blood 4.3 mmol/L (3.5-5.5); Sodium, Blood 141 mmol/L (136-145)
--- NOTE | 2018-04-02 05:41 | NUR ---
SUMMARY PATIENT SLEEPING MOST OF THE NIGHT WITH BIPAP IN PLACE SET AT 10/5 FIO2 40%, TAKING FEW BREAKS FOR A SNACK AND TO GET UP TO BSC ON 5L/OXY. REPOSITIONING SELF IN BED FOR COMFORT. SOB WITH ACTIVITY WITH RESP 22-28. WHILE SLEEPING PRODUCTION SUPPORT DEVELOPER SHOWING SINUS MAU IN THE HIGH 40'S. PATIENTS BLOOD PRESSURE REMAINING STABLE T/O NIGHT.
[2018-04-02 08:11] LABS: HBSAG SCREEN Negative (Negative); HEP B CORE AB, TOT Negative (Negative); HEP C VIRUS AB >11.0 (0.0-0.9)
--- NOTE | 2018-04-02 11:37 | NUR ---
AWAKE SITTING UP. BIPAP 10/5 AT 35% REMOVED AND 4L OXYMIZER ON. BRUSHED OWN TEETH.
--- NOTE | 2018-04-02 15:58 | NUR ---
Ines was guarded and emotionaly withdrawn. She has been to in-patient drug/alcohol treatment and does not believe she needs that again. She also declines the need for 12-step meetings. "All I need is my meds and I'll be fine." She did not want prayer or companionship at this time. I will remain available.
--- NOTE | 2018-04-02 18:07 | NUR ---
PATIENT ATE POORLY TODAY. ORDERED A SANDWICH FROM [employer] THAT IS JUST NOW DELIVERED. STILL ON 4L OXYMIZER. IS NOW PCU STATUS. FEELING MUCH BETTER TODAY. STILL OCC EXP WHEEZES LUPE LUNGS.
--- NOTE | 2018-04-02 19:30 | NUR ---
PATIENT VERBALIZED SHE IS FEELING BETTER THIS EVENING. SOB WITH ACTIVITY, RECOVERING QUICKLY. ON 4L/OXY. PATIENT C/O PAIN TO LOW BACK RADIATING TO LEFT LEG PATIENT VERBALIZED FEELS LIKE SCIATICA PAIN. PATENT MEDICATED WITH FENTANYL AND BIPAP PLACED FOR SLEEP.
[2018-04-02 19:59] LABS: Vancomycin, Trough 28.9 ug/mL (5.0-10.0)
[2018-04-02 23:20] LABS: Vancomycin, Random 18.5 ug/mL
[2018-04-03 04:14] LABS: BASOPHILS ABSOLUTE AUTO 0.02 K/mm3 (0.00-0.23); BASOPHILS PERCENT AUTO 0 % (0-2); EOSINOPHILS PERCENT AUTO 0 % (0-6); Hematocrit 33.3 % (33.0-51.0); Hemoglobin 10.6 g/dL (11.5-16.0); IMMATURE GRAN ABSOLUTE AUTO 0.21 K/mm3 (0.00-0.10); IMMATURE GRAN PERCENT AUTO 1 % (0-1); LYMPHOCYTES ABSOLUTE AUTO 1.07 K/mm3 (0.84-5.20); LYMPHOCYTES PERCENT AUTO 7 % (21-46); MONOCYTES ABSOLUTE AUTO 0.58 K/mm3 (0.16-1.47); MONOCYTES PERCENT AUTO 4 % (4-13); Mean Corpuscular HGB 29.2 pg (26.0-34.0); Mean Corpuscular HGB Conc 31.8 g/dL (31.5-36.5); Mean Corpuscular Volume 92 fL (80-100); Mean Platelet Volume 10.6 fL (9.1-12.4); NEUTROPHILS ABSOLUTE AUTO 14.38 K/mm3 (1.96-9.15); NEUTROPHILS PERCENT AUTO 88 % (41-73); Platelet Count 309 K/mm3 (150-400); RDW Coefficient Variation 12.8 % (11.7-14.2); RDW Standard Deviation 42.5 fL (35.1-46.3); Red Blood Cell Count 3.63 M/mm3 (3.80-5.20); White Blood Cell Count 16.26 K/mm3 (4.00-11.30)
[2018-04-03 04:35] LABS: Anion Gap 6 mmol/L (6-16); Blood Urea Nitrogen 14 mg/dL (8-24); Bun/Creatinine Ratio 15.8 (12.0-20.0); CO2, Blood 28 mmol/L (21-32); Calcium, Blood 8.2 mg/dL (8.5-10.1); Chloride, Blood 109 mmol/L (98-108); Creatinine, Blood 0.89 mg/dL (0.40-1.00); Glomerular Filtration Rate >60 (60-); Glucose, Blood 113 mg/dL (70-99); Potassium, Blood 4.3 mmol/L (3.5-5.5); Sodium, Blood 143 mmol/L (136-145)
--- NOTE | 2018-04-03 06:56 | NUR ---
SUMMARY PATIENT SLEEPING MOST OF THE NIGHT WITH BIPAP IN PLACE. ON 4L/OXY WHEN OFF BIPAP. CONTINUES TO BE SOB WITH ACTIVITY.
--- NOTE | 2018-04-03 07:50 | NUR ---
INITIAL ASSESSMENT: Pt appears to be sleeping comfortably in bed. Wakes to verbal stimulus. Biox shows 96% on 4L oxymizer at this time. Decreased to 2L oxymizer and will monitor. LS with some wheezing in upper lobes. BT positive. Pulses palp. HR reg. Pt denies pain at this time but requesting ativan to be given with solumedral. VSS. WIll monitor.
--- NOTE | 2018-04-03 08:25 | NUR ---
Update: Pt biox decreased to 87% on 2L oxymizer. Put back up to 4L oxymizer. THis made little difference. Encouraged Pt to go back on bipap. She aggreed. Bipap placed back on at 35% fio2, 11/24. BIox increased to 92%. WIll monitor.
--- NOTE | 2018-04-03 09:36 | NUR ---
UPdate: Pt sitting up in bed eating breakfast on 4l Oxymizer. Biox >90%. Plan to transfer to U 10. Will call report.
--- NOTE | 2018-04-03 18:03 | NUR ---
END OF SHIFT PT HAS HAD NO CHANGES TO THE ASSESSMENT, VSS, PT HAS BEEN ABLE TO AMBULATE WITH NO ASSIST, PT HAS BEEN EDUCATED ON THE NEED TO CALL FOR ASSIST
[2018-04-04 01:40] LABS: Vancomycin, Trough 15.1 ug/mL (5.0-10.0)
--- NOTE | 2018-04-04 01:47 | NUR ---
ASSUMED CARE OF PATIENT AT APPROXIMATELY 1910 FROM JENNIFER Tracy RN. PATIENT ALERT AND ORIENTED X4; INDEPENDENT TO BEDSIDE COMMODE. PATIENT REPORTS PAIN IN LEFT LEG R/T "SCIATIC NERVE PAIN"; REQUESTED PRN PAIN MEDICATION; PATIENT REQUESTED IV ATIVIAN WITH SOLUMEDROL. PATIENT REPORTS LEFT LEG OCCASIONALLY HAS NUMBNESS AND TINGLING WITH THE NERVE PAIN. PATIENT DENIES NAUSEA AND DIZZINESS. PATIENT SLEEPS BETWEEN CARE ROUNDING; REQUESTS FREQUENT SNACKS; BM 04/03. SB ON TELE; RATE IN 40'S; OXYGEN SATURATION ABOVE 90% ON 4LPM VIA NC OR ON BIPAP. 2XPIV. IV ABX INFUSING. PATIENT CURRENTLY SLEEPING IN BED; CALL LIGHT IN REACH; BED IN LOWEST POSISTION; WILL CONTINUE TO MONITOR AND ASSESS UNTIL END OF SHIFT.
--- NOTE | 2018-04-04 06:36 | NUR ---
PATIENT SLEPT ABOUT TEN HOURS LAST NIGHT; PATIENT SLEPT MOST OF THE NIGHT ON BIPAP. VSS. NO OTHER ACUTE CHANGES TO REPORT FROM PREVIOUS NURSING NOTES. TWO BOWEL MOVEMENTS. WILL CONTINUE TO MONITOR AND ASSESS UNTIL END OF SHIFT.
[2018-04-04 12:07] LABS: FINAL INTERPRETATION Negative (.); HIV 1 AB Negative (Negative); HIV 2 AB Negative (Negative)
--- NOTE | 2018-04-04 19:23 | NUR ---
END OF SHIFT PT HAS HAD INCREASE O2 USE, VSS, PT HAS HAD NO OTHER CHANGES TO THE ASSESSMETN
[2018-04-05 03:41] LABS: BASOPHILS ABSOLUTE AUTO 0.03 K/mm3 (0.00-0.23); BASOPHILS PERCENT AUTO 0 % (0-2); EOSINOPHILS PERCENT AUTO 0 % (0-6); Hematocrit 32.6 % (33.0-51.0); Hemoglobin 10.7 g/dL (11.5-16.0); IMMATURE GRAN ABSOLUTE AUTO 0.66 K/mm3 (0.00-0.10); IMMATURE GRAN PERCENT AUTO 4 % (0-1); LYMPHOCYTES ABSOLUTE AUTO 0.78 K/mm3 (0.84-5.20); LYMPHOCYTES PERCENT AUTO 4 % (21-46); MONOCYTES ABSOLUTE AUTO 0.45 K/mm3 (0.16-1.47); MONOCYTES PERCENT AUTO 3 % (4-13); Mean Corpuscular HGB 29.6 pg (26.0-34.0); Mean Corpuscular HGB Conc 32.8 g/dL (31.5-36.5); Mean Corpuscular Volume 90 fL (80-100); Mean Platelet Volume 10.5 fL (9.1-12.4); NEUTROPHILS ABSOLUTE AUTO 16.07 K/mm3 (1.96-9.15); NEUTROPHILS PERCENT AUTO 89 % (41-73); Platelet Count 257 K/mm3 (150-400); RDW Coefficient Variation 12.5 % (11.7-14.2); RDW Standard Deviation 41.1 fL (35.1-46.3); Red Blood Cell Count 3.62 M/mm3 (3.80-5.20); White Blood Cell Count 17.99 K/mm3 (4.00-11.30)
[2018-04-05 04:02] LABS: Alanine Aminotransfer (ALT/SGP 57 U/L (12-78); Albumin/Globulin Ratio 0.5 (0.8-1.8); Alk Phos 122 U/L (50-136); Anion Gap 7 mmol/L (6-16); Aspartate Aminotrans (AST/SGOT 41 U/L (12-37); Bilirubin, Total 0.5 mg/dL (0.1-1.0); Blood Urea Nitrogen 13 mg/dL (8-24); Bun/Creatinine Ratio 16.5 (12.0-20.0); CO2, Blood 29 mmol/L (21-32); Calcium, Blood 8.2 mg/dL (8.5-10.1); Chloride, Blood 107 mmol/L (98-108); Creatinine, Blood 0.79 mg/dL (0.40-1.00); Globulin, Blood 4.4 g/dL (2.2-4.0); Glomerular Filtration Rate >60 (60-); Glucose, Blood 127 mg/dL (70-99); Phosphorus, Blood 3.1 mg/dL (2.5-4.9); Potassium, Blood 3.8 mmol/L (3.5-5.5); Sodium, Blood 143 mmol/L (136-145); Total Protein, Blood 6.4 g/dL (6.4-8.2)
--- NOTE | 2018-04-05 06:22 | NUR ---
SHIFT SUMMARY PATIENT PLEASENT AND COOPERATIVE THROUGHOUT THE NIGHT. PATIENT USED THE BIPAP THROUGHOUT MOST OF THE NIGHT, CONTINUOUS BIOX IN PLACE. WHEN OFF BIPAP PATIENT ON 10L VIA HIGH FLOW N/C. PATIENT MEDICATED FOR ANXIETY X 1. PATIENT APPEARED TO NAP ON AND OFF THROUGHOUT MOST OF THE NIGHT. PATIENT CONTINUES TO FEEL LIKE HER BREATHING IS WORSENING OVER HER STAY AND NOT GETTING BETTER. THIS MORNING PATIENT STATED THAT SHE FEELS HER BREATHING IS STARTING TO "FEEL LIKE IT DOES RIGHT BEFORE I'VE BEEN INTUBATED." RESPIRTORY THERAPEST IN TO SEE PATIENT AND ADJUSTED SETTINGS. PATIENT APPEARS TO BE SLEEPING COMFORTABLY AT THIS TIME. BIPAP SETTINGS AT THIS TIME ARE 14/6 AND 60% FIO2. WILL CONTINUE TO MONITOR PATIENT AND REPORT TO ONCOMING RN.
--- NOTE | 2018-04-05 11:09 | NUR ---
LEFT MESSAGE ON 'S VOICEMAIL; PATIENT HEART RATE RUNS 39 TO LOW 40'S. DOES GET ATIVAN BACAYSE VERY ANXIOUS, GETS SOLUMEDROL AND ON BIPAP AT FIO2 65. CAN NOT PUT HER ON HIGH FLOW OXYGEN DESATS. AWAITING CALL BACK OR ANY ORDERS.
--- NOTE | 2018-04-05 13:43 | NUR ---
Pt is currently asleep on bipap. Family asks me not to wake her up since she had a "rough" morning and was really working for air. Mother and of patient at bedside, reports that she has gotten medication for anxiety. Reviewed that I was there to talk about future planning and advance care planning. Instructed that everyone over the age of 18 should have and advance directive filled out. They agree and report that they will talk with the patient about this. Information on advance directives left with family. Will remain available.
--- NOTE | 2018-04-05 14:07 | NUR ---
SLEEPING. BIPAP ON. SATS LOW 90'S. RELATIVES IN ROOM.
--- NOTE | 2018-04-05 18:32 | NUR ---
PATIENT ALERT AND ORIENTED. PATIENT ADVISED TO LET US KNOW WHAT SHE IS EATTING HAS BEEN EATTING OUTSIDE FOOD NOT HOSPITAL AND NOTHING HAS BEEN RECORDED. BIPAP ADJUSTED BY R.T. CURRENTLY FIO2 60 AND 14/6. ON BIPAP ALL DAY UNLESS TAKING MEDS OR EATTING. PULSE 39-65, MOSTLY IN 40'S. RELATIVE WAS HELPING PATIENT IF NEEDED TO GET UP. PATIENT AWARE WE NEED URINE SAMPLE. WAS IN TO SEE EARLY TODAY. COOPERATIVE. PLEASANT. BED IN LOW POSITION. CALL LIGHT WITHIN REACH. WILL CONTINUE TO MONITOR.
--- NOTE | 2018-04-06 07:28 | NUR ---
SHIFT SUMMARY PATIENT PLEASENT AND COOPERATIVE THROUGHOUT THE NIGHT. PATIENT CONTINUES TO USE THE BIPAP THROUGHOUT MOST OF THE NIGHT, ONLY TAKING SHORT BREAKS WITH THE HIGH FLOW N/C AT 15L TO EAT. PATIENT APPEARED TO NAP WELL ON AND OFF THROUGHUT THE NIGHT. HOWEVER, PATIENT STATES SHE HAS A HARD TIME GETTING COMFORTABLE. PATIENT MEDICATED FOR PAIN AND ANXIETY PER EMAR. PATIENT USED THE BEDPAN X 1 THIS AM STATING THAT SHE WAS TOO TIRED TO USE THE BSC. CONTINUOUS BIOX IN PLACE. VITAL SIGNS CHARTED. REPORT GIVEN TO ONCOMING RN.
--- NOTE | 2018-04-06 08:00 | NUR ---
pt laying in bed with bipap in place, she removed it and was going to put her cannula on but couldn't find it. sats were in the low 80's, placed her back on bipap, until got her cannula, we tried the cannula for a few minutes and she felt like she was not getting enough air, went back to bipap, but is highly anxious, gave ativan and her solumedrol, called rt to come to room as not getting sats up, lungs are tight, wheezing, with some fine crackles in bases, resp labored at a rate in the 40's at this time. hrr, tele in place running sb to sr per monitor, see strip, no edema noted, ppp+2, cap refill <3sec, vs stable, low grade temp, ivx2 to right hand she states this one luke, this will be removed, one to left upper arm that is positional, will have another iv placed, btx4, abd round soft nontender, voids without diff, skin c/w/d, [place] leon, call light in reach.
[2018-04-06 10:01] LABS: PO2 Arterial 87.3 mmHg (80-100); pH Blood Arterial 7.45 (7.35-7.45)
--- NOTE | 2018-04-06 12:38 | NUR ---
pt resting in bed on her bipap, she is tired, powerglide was placed to marcos, she is really unable to come off bipap but just long enough to take po meds. mom was in room and feels that she is going backwards. call light in reach.
--- NOTE | 2018-04-06 18:50 | NUR ---
PT RESTING MOST OF THE DAY ON THE BIPAP, MOM IN ROOM MOST OF THE DAY, SHE WAS ABLE TO BE ON CANNULA FOR ABOUT A HALF AN HR. NO FURTHER CHANGES THIS SHIFT. CALL LIGHT IN REACH.
[2018-04-07 04:35] LABS: Anion Gap 7 mmol/L (6-16); Blood Urea Nitrogen 15 mg/dL (8-24); Bun/Creatinine Ratio 21.2 (12.0-20.0); CO2, Blood 32 mmol/L (21-32); Calcium, Blood 8.4 mg/dL (8.5-10.1); Chloride, Blood 103 mmol/L (98-108); Creatinine, Blood 0.71 mg/dL (0.40-1.00); Glomerular Filtration Rate >60 (60-); Glucose, Blood 138 mg/dL (70-99); Potassium, Blood 4.1 mmol/L (3.5-5.5); Sodium, Blood 142 mmol/L (136-145)
[2018-04-07 05:00] LABS: Hematocrit 33.3 % (33.0-51.0); Hemoglobin 10.8 g/dL (11.5-16.0); Mean Corpuscular HGB 29.3 pg (26.0-34.0); Mean Corpuscular HGB Conc 32.4 g/dL (31.5-36.5); Mean Corpuscular Volume 91 fL (80-100); Mean Platelet Volume 11.2 fL (9.1-12.4); Platelet Count 250 K/mm3 (150-400); RDW Coefficient Variation 12.7 % (11.7-14.2); Red Blood Cell Count 3.68 M/mm3 (3.80-5.20); White Blood Cell Count 16.98 K/mm3 (4.00-11.30)
--- NOTE | 2018-04-07 05:49 | NUR ---
ASSUMED CARE OF PATIENT AT APPROXIMATELY 1905 FROM GERARDO Gregorio RN. PATIENT ALERT AND ORIENTED X4; SBA TO BEDSIDE COMMODE. PATIENT REPORTS PAIN IN LEFT LEG R/T "SCIATIC NERVE PAIN"; REQUESTED PRN PAIN MEDICATION; PATIENT REQUESTED IV ATIVIAN WITH SOLUMEDROL. PATIENT REPORTS LEFT LEG OCCASIONALLY HAS NUMBNESS AND TINGLING WITH THE NERVE PAIN. PATIENT DENIES NAUSEA AND DIZZINESS. PATIENT SLEEPS BETWEEN CARE ROUNDING; REQUESTS FREQUENT SNACKS; SB ON TELE; OXYGEN SATURATION ABOVE 90% ON 01/25 55% FIO2 ON BIPAP; BREAKS AND WEARS HF NC. 1XPIV. PG YANELIS S/L. PATIENT SLEPT ABOUT TEN HOURS LAST NIGHT. PATIENT CURRENTLY SLEEPING IN BED; CALL LIGHT IN REACH; BED IN LOWEST POSISTION; WILL CONTINUE TO MONITOR AND ASSESS UNTIL END OF SHIFT.
--- NOTE | 2018-04-07 08:00 | NUR ---
pt laying in bed on high yklah cannula, doing ok, she feels that she is breathing easier today, but is requiring more 02 at 15 liters. a/ox3, cooperative with care, follows commands well, sates she is doing ok, lungs have exp wheezing t/o, resp even and unlabored, no cough noted, hrr, tele in place running sr per monitor, see strip, no edema noted to b/l le, hands have a trace, power glide to marcos site is clear and patent, piv to siena site is clear and patent, btx4, abd flat soft nontender, voids via bsc, skin c/w/d, edward, [place], call light in reach.
--- NOTE | 2018-04-07 13:30 | NUR ---
PT DOING OK, GOING ON BIPAP, THEN TAKING BREAKS, STAYING OFF OF THE BIPAP LONGER THAN YESTERDAY, BUT REQUIRING HIGHER O2 LEVEL. CALL LIGHT IN REACH.
[2018-04-07 18:05] LABS: HEPATITIS C QUANTITATION HCV Not Detected IU/mL (.)
--- NOTE | 2018-04-07 18:11 | NUR ---
PT GOT STARTED ON GABAPENTEN BUT WAS UNHAPPY WITH DOSE STATES SHE WAS ON A HIGHER DOSE BEFORE, LATER STATES SHE NEEDS IBUPROPHEN, THIS WAS ORDERED AND GIVEN HER, NO FURTHER CHANGES THIS THIS SHIFT.
--- NOTE | 2018-04-07 21:33 | NUR ---
ASSUMED CARE OF PATIENT AT APPROXIMATELY 1905 FROM GERARDO Gregorio RN. PATIENT ALERT AND ORIENTED X4; SBA TO BEDSIDE COMMODE. PATIENT REPORTS PAIN IN LEFT LEG R/T "SCIATIC NERVE PAIN"; REQUESTED PRN PAIN MEDICATION; PATIENT REPORTS THAT ICE PACK AND IBUPROFEN PROVIDE NO RELIEF. PATIENT REPORTS LEFT LEG OCCASIONALLY HAS NUMBNESS AND TINGLING WITH THE NERVE PAIN. PATIENT DENIES NAUSEA AND DIZZINESS. SB ON TELE; OXYGEN SATURATION ABOVE 90% ON 10LPM VIA HF NC; REPORTS SHE WILL WEAR BIPAP TONIGHT; DOING BETTER TODAY COMPARED TO LAST NIGHT. 1XPIV. PG YANELIS S/L. PATIENT CURRENTLY SLEEPING IN BED; CALL LIGHT IN REACH; BED IN LOWEST POSISTION; WILL CONTINUE TO MONITOR AND ASSESS UNTIL END OF SHIFT.
--- NOTE | 2018-04-08 06:41 | NUR ---
PATIENT SLEPT ABOUT TEN HOURS LAST NIGHT. PATIENT STATED SHE WOULD WEAR THE BIPAP LAST NIGHT BUT ONLY WORE THE BIPAP FOR ABOUT AN HOUR THIS MORNING; 10LPM VIA OXYMIZER FOR THE REST OF THE NIGHT. VSS. WILL CONTINUE TO MONITOR AND ASSESS UNTIL END OF SHIFT.
--- NOTE | 2018-04-08 09:50 | NUR ---
BEGINNING OF SHIFT Assumed care at 0700. Report received from Patricia HARMON. Pt on 10 LPM Oxymizer. Continuous oximertry began alarming. Pt stated "I don't know why that's going off". This RN explained that O2 saturations were 86%. Pt stated she would wear BiPAP. Pt on BiPAP for less than one hour. Bed in lowest position. Call light in reach.
--- NOTE | 2018-04-08 18:39 | NUR ---
SHIFT SUMMARY At this time, pt is currently on 4 LPM oxymizer, tolerating well. Pt stated she was having heartburn and requested Tums. This RN obtained telephone order from Tums from Dr Alvarado. No additional changes since shift assessment. Will continue to closely monitor until care handoff and bedside report with oncoming RN.
--- NOTE | 2018-04-08 21:00 | NUR ---
ASSUMED CARE OF PATIENT AT APPROXIMATELY 1910 FROM EVERARDO Carranza RN. PATIENT ALERT AND ORIENTED X4; SBA TO BEDSIDE COMMODE. PATIENT REPORTS PAIN IN LEFT LEG R/T "SCIATIC NERVE PAIN"; REQUESTED PRN PAIN MEDICATION. PATIENT REPORTS LEFT LEG OCCASIONALLY HAS NUMBNESS AND TINGLING WITH THE NERVE PAIN. PATIENT DENIES NAUSEA AND DIZZINESS. SR ON TELE; OXYGEN SATURATION ABOVE 90% ON 10LPM VIA HF NC; WAS ON 4LPM VIA NC. 1XPIV. PG YANELIS S/L. PATIENT CURRENTLY SLEEPING IN BED; CALL LIGHT IN REACH; BED IN LOWEST POSISTION; WILL CONTINUE TO MONITOR AND ASSESS UNTIL END OF SHIFT.
--- NOTE | 2018-04-09 06:24 | NUR ---
NO ACUTE CHANGE TO REPORT. PATIENT ON 10LPM VIA NC MOST OF THE NIGHT; PATIENT DID NOT WEAR BIPAP AT ALL LAST NIGHT. PATIENT SLEPT ABOUT TEN HOURS LAST NIGHT. VSS. WILL CONTINUE TO MONITOR AND ASSESS UNTIL END OF SHIFT.
--- NOTE | 2018-04-09 16:03 | NUR ---
GABAPENTIN Pt has told this RN and previous night RN that she takes 300 mg of gabapentin three times a day. This RN discussed this with Dr Alvarado. New orders given. Gabapentin not noted on home med list. Pt states she was taking it prior to her . When this RN asked what pt was doing for her sciatic pain prior to admit, pt stated "Well I would take gabapentin if I could get it. I took way too much ibuprofen, and street drugs".
--- NOTE | 2018-04-09 19:23 | NUR ---
SHIFT SUMMARY Assumed care of pt at 0700. Report recieved from Patricia HARMON. Pt on 10 LPM oxymizer. O2 titrated down until pt was on 3 LPM NC. Pt stayed on 3 LPM NC for about one hour. Pt eventually required O2 to be titrated up to 6 LPM NC and then was switched to 5 LPM oxymizer and has been there since. O2 sats between 88% and 92% per continuous oximetry. Pt desaturates during activity. Pt frequently requests ativan. No visible signs of anxiety noted, no dyspnea noted. Pt will state she is feeling "anxious" and "worked-up". Bed maintained in lowest position. Call light in reach. Report given to oncAditi higgins RN.
--- NOTE | 2018-04-10 05:54 | NUR ---
SHIFT SUMMARY PATIENT PLEASENT AND COOPERATIVE THROUGHOUT THE NIGHT. PATIENT REMAINED ON THE 6L O2 VIA OXYMIZER THROUGHOUT THE NIGHT AND APPEARED TO TOLERATE IT WELL. PATIENT WAS ON THE BIPAP FOR APPROX 30 MINUTES LAST NIGHT. PATIENT MEDICATED FOR PAIN AND ANXIETY PER EMAR. PATIENT APPEARED TO SLEEP WELL THROUGHOUT THE NIGHT. VITAL SIGNS CHARTED. WILL CONTINUE TO MONITOR PATIENT AND REPORT TO ONCOMING RN.
--- NOTE | 2018-04-10 09:46 | NUR ---
BEGINNING OF SHIFT Assumed care of pt at 0700. Report received from Aditi HARMON. Pt on 5 LPM oxymizer. Changed to 5 LPM high flow NC. Pt tolerating well. Pt independent in room. Bed in lowest position. Call light in reach. Pt denies need at this time.
--- NOTE | 2018-04-10 18:02 | NUR ---
SHIFT SUMMARY No acute changes to shift assessment. Pt took a shower today and required O2 to be titrated up with activity. At rest, pt requires 4 LPM NC. Pt had an episode of anxiety earlier today. This RN talked to the pt and encouraged her to descalate without medication, reinforcing that the medication is available should her anxiety begin to affect her breathing. Pt verbalized understanding. Pt verbalizes concerns that her wellbutrin was not added onto her hospital regimen. Pt also states her home dose of gabapentin, prior to her last , was 1-3 tablets of 300 mg gabapentin up to three times per day. This RN placed call to [facility] pharmacy, where pt states she picked up her gabapentin, to verify. Per [facility] pharmacy, pt's gabapentin was last filled in 2014, and she was taking 800 mg QID as needed. This RN asked the pt to make a list of medications she takes at home, as well as the doses, and address this with the hospitlaist during the day. At this time, pt is on 4 LPM NC. Will continue to closely monitor until care handoff and bedside report with oncoming RN.
--- NOTE | 2018-04-10 21:40 | NUR ---
PM NOTE. ASSUMED CARE OF PT APROX 1900, PT IS A&Ox4 AND IND IN THE ROOM. PT WAS ADMITTED DUE TO RESP FAILURE, SHE IS CURRENTLY ON 4L HIGH FLOW NC WITH STATS >90%. TELE INTACT, NSR IN THE 80'S PER LEAK OPERATOR PARAFFIN PLANT, PT'S BP 124/75, NO EDEMA PRESENT ON ASSESSMENT. PT'S L/S CLEAR T/O WITH FINE CRAKLES IN THE BASES AND SCATTERED "SQUEEKS". BT PRESENT AND HYPERACTIVE, ABD IS SOFT AND NONTENDER TO PALP. PT IS IND IN THE ROOM AND CALL APROP. PT DENIES ANY CHEST PAIN/PRESSURE, N/V AND IS SOB W/ACTIVTY. CALL LIGHT IN REACH, BED IS LOCKED AND LOW WILL CONTINUE TO MONITOR.
[2018-04-11 04:14] LABS: BASOPHILS ABSOLUTE AUTO 0.04 K/mm3 (0.00-0.23); BASOPHILS PERCENT AUTO 0 % (0-2); EOSINOPHILS PERCENT AUTO 0 % (0-6); Hematocrit 33.9 % (33.0-51.0); Hemoglobin 10.8 g/dL (11.5-16.0); IMMATURE GRAN ABSOLUTE AUTO 0.96 K/mm3 (0.00-0.10); IMMATURE GRAN PERCENT AUTO 6 % (0-1); LYMPHOCYTES ABSOLUTE AUTO 1.08 K/mm3 (0.84-5.20); LYMPHOCYTES PERCENT AUTO 7 % (21-46); MONOCYTES ABSOLUTE AUTO 0.48 K/mm3 (0.16-1.47); MONOCYTES PERCENT AUTO 3 % (4-13); Mean Corpuscular HGB 29.8 pg (26.0-34.0); Mean Corpuscular HGB Conc 31.9 g/dL (31.5-36.5); Mean Corpuscular Volume 93 fL (80-100); Mean Platelet Volume 10.5 fL (9.1-12.4); NEUTROPHILS ABSOLUTE AUTO 13.54 K/mm3 (1.96-9.15); NEUTROPHILS PERCENT AUTO 84 % (41-73); Platelet Count 393 K/mm3 (150-400); RDW Coefficient Variation 12.9 % (11.7-14.2); RDW Standard Deviation 43.8 fL (35.1-46.3); Red Blood Cell Count 3.63 M/mm3 (3.80-5.20)
[2018-04-11 04:41] LABS: Anion Gap 10 mmol/L (6-16); Blood Urea Nitrogen 22 mg/dL (8-24); Bun/Creatinine Ratio 27.1 (12.0-20.0); CO2, Blood 30 mmol/L (21-32); Calcium, Blood 8.4 mg/dL (8.5-10.1); Chloride, Blood 101 mmol/L (98-108); Creatinine, Blood 0.81 mg/dL (0.40-1.00); Glomerular Filtration Rate >60 (60-); Glucose, Blood 126 mg/dL (70-99); Potassium, Blood 4.2 mmol/L (3.5-5.5); Sodium, Blood 141 mmol/L (136-145)
[2018-04-11 04:51] LABS: BAND PERCENT MAN 4 % (0-8); BASOPHILS PERCENT MAN 0 % (0-2); EOSINOPHILS PERCENT MAN 0 % (0-6); LYMPHOCYTES ABSOLUTE MAN 0.96 K/mm3 (0.84-5.20); LYMPHOCYTES PERCENT MAN 6 % (21-46); MONOCYTES PERCENT MAN 5 % (4-13); NEUTROPHILS ABSOLUTE MAN 14.32 K/mm3 (1.96-9.15); SEG NEUTROPHILS PERCENT MAN 85 % (41-73); TOTAL CELLS COUNTED 100
--- NOTE | 2018-04-11 05:01 | NUR ---
SHIFT SUMMARY. NO ACUTE CHANGES NOTED, PT'S O2 HAS BEEN TITRATED FROM 4L NC TO 2L NC, PT HAS TOLERATED THIS WELL WITH STATS >90%. PT DENIES CHEST PAIN/PRESSURE. PT HAS BEEN MEDICATED FOR ANXIETY x1 THIS SHIFT AND HAS RESTED WELL T/O THIS SHIFT. CALL LIGHT IN REACH, BED IS LOCKED AND LOW WILL CONTINUE TO MONITOR UNTIL REPORT IS GIVEN TO ONCOMING RN.
--- NOTE | 2018-04-11 11:36 | NUR ---
Spirtual care visit attempted. After an attempt yesterday and two attempts to visit today, patient once again asked if I could come back tomorrow. I will remain available to patient and the family
--- NOTE | 2018-04-11 17:55 | NUR ---
END OF SHIFT SUMMARY; PT VERY TEARY DURING SHIFT. SHE STATES SHE IS ANXIOUS ALL DAY AND ONLY ATIVAN GABAPENTIN AND SUBOXONE ARE THE ONLY THINGS THAT MAKE HER FEEL BETTER. MOM REMAINS AT BEDSIDE THROUGHOUT DAY. SHE REMAINS ON 2 LITERS O2 DURING DAY. TRAILER TRUCK DRIVER AND [facility] CSE PAYROLL AND BENEFITS SPECIALIST IN TO SPEAK WITH PT ABOUT OPTIONS FOR REHAB WHEN SHE IS DISCHARGED. WILL CONTINUE TO MONITOR THIS PATIENT UNTIL REPORT AND HAND OFF TO NOC SHIFT RN.
--- NOTE | 2018-04-12 05:35 | NUR ---
SHIFT SUMMARY PT A&O X4, COOPERATIVE, ANXIOUS AT TIMES. PT STATES BREATHING BECOMING "BETTER" BUT STATES INTERMITTENTLY HAVING "OCCASSIONAL PULSATING IN MY HEAD. IT'S LIKE MY HEAD'S NOT GETTING ENOUGH OXYGEN. AND PRESSURE IN MY CHEST" SHE PLACES HER HAND OVER HER CHEST JUST BELOW HER NECK. PT STATES THIS CAUSES HER ANXIETY IN WHICH SHE STATES ATIVAN HELPS. PT ALSO C/O PAIN IN THE BACK OF HER L LEG THAT SHE REQUESTS GABAPENTIN, IBUPROFEN, AND ICE PACKS FOR. PT INDEPENDENT TO BSC. LUNG SOUNDS COARSE T/O, SPO2 > 90% ON 2.5L NC. MONITOR SHOWS NSR/ST, HR 70-110. PT ABLE TO SLEEP MAJORITY OF NIGHT. WILL CONTINUE TO MONITOR AND PROVIDE CARE UNTIL REPORT OFF TO DAY SHIFT RN.
--- NOTE | 2018-04-12 08:13 | NUR ---
pt sitting up in bed awake a/ox3, pleasant and cooperative with care, looks much better than last week, states she is feels much better, lungs are clear, with some faint courseness, is down to 2.5 liters on 02 she reports she gets sob with activity, resp even and unlabored, no cough noted, hrr, tele in place running sr per monitor, see strip, trace edema noted to b/l le, ppp+2, cap refill <3sec, vs stable, afebrile, iv site is power glide to marcos site is clear and patent, btx4, abd flat soft nontender, voids without diff, skin c/w/d, maew, [place], call light in reach.
--- NOTE | 2018-04-12 14:18 | NUR ---
pt up to shower, she requested a nicotine patch for cravings. mentioned that she should probably be through the craving stage as she has been in the hosp for a week, she said she is still having them. call to Dr. Negro, he ordered at 14mg patch, this was given to her. call light in reach.
--- NOTE | 2018-04-12 15:20 | NUR ---
Dr. León was in to see pt, he said from his standpoint she could go home, spoke with Dr. Negro, she will need a home 02 eval and change status to medical floor, stop tele. informed pt. call light in reach.
--- NOTE | 2018-04-12 15:40 | NUR ---
pt has been changed to medical status, will be going to 341, report given to otto HARMON, will transfer via wheelchair with all her belongings.
--- NOTE | 2018-04-12 16:10 | NUR ---
PT HAS BEEN TRANSFERED VIA WHEELCHAIR TO 341
--- NOTE | 2018-04-12 17:49 | NUR ---
TRANSFER NOTE/SHIFT SUMMARY RECEIVED REPORT FROM GERARDO SORENSON RN IN PCU. PT TO ROOM VIA WHEELCHAIT AT 1550. IND TRANSFERED TO BED. PT ORIENTED TO ROOM AND CALL LIGHT. PT A&OX4. ANXIOUS BUT COOPERATIVE WITH CARE, MEDICATED PER EMAR. PT SOB WITH EXERTION, ON EXERTIONS, >90% ON 2L O2 VIA NC. PT DENIES PAIN AND N/V DURING ASSESSMENT. PT TRANSISTIONING TO PO STEROIDS THIS EVENING. VSS. NO OTHER ACUTE CHANGES NOTED DURING SHIFT. WILL CONTINUE TO MONITOR UNTIL REPORT GIVEN TO ONCOMING RN.
--- NOTE | 2018-04-13 06:29 | NUR ---
SHIFT SUMMARY PT SLEPT WELL T/O NIGHT. AOX4. VSS. DENIES PAIN OR N/V. REPORTS SOB W/EXERTION. PT INDEPENDANT IN ROOM & EARLIER IN SHIFT PT WAS ABLE TO WHEEL SELF IN WHEELCHAIR OUT IN HALLWAY W/MASK & O2. PT REPORTS BREATHING IS BETTER & DENIES ANY SOB @REST. SPO2 >90% ON 2L O2. PT REPORTS STEROIDS CAUSE HER TO HAVE AN INCREASED APPETITE & ASKS FOR SNACKS T/O NIGHT. CALL LIGHT IS IN REACH & I WILL CONT TO MONITOR PT.
[2018-04-13] MEDS ORDERED: ALPR.25 PO (10:34)
[2018-04-13] MEDS ORDERED: GUAI600T33 PO (10:35)
[2018-04-13] MEDS ORDERED: PRED20 PO (10:37)
--- NOTE | 2018-04-13 13:10 | NUR ---
PATIENT DISCHARGE: PATIENT DISCHARGED TO HOME THIS SHIFT. MEDICATION RECONCILIATION COMPLETED; MED LIST FAXED TO [facility]; HARD SCRIPT PROVIDED TO PATIENT FOR CONTROLLED SUBSTANCE. PATIENT REFUSED WHEELCHAIR TRANSPORT TO EXIT; PATIENT INDEPENDENT IN ROOM. PATIENT DEPARTED MEDICAL FLOOR AT 1310. PATIENT DEPARTED [facility] VIA PRIVATE AUTO.
== END 2018-04-13 13:08 | disposition home or self-care (01) | DRG 871 ==
LOC: ER 17:24 → ICUW 20:19 → ICUE 20:19 → PCU 04-03 10:29 → MEDS 04-12 15:54 → ENPENDDIS 04-13 10:18 → MEDS 04-13 13:08
PROVIDERS: Emergency Medicine; Internal Medicine; Internal Medicine Critical Care Medicine; Internal Medicine Infectious Disease; ADMIT Hospitalist
PROC: 5A09357 Assistance with Respiratory Ventilation, Less than 24 Consecutive Hours, Continuous Positive Airway Pressure (ICD-10-PCS; principal; 2018-03-31)
DX: A41.9 Sepsis, unspecified organism (principal); J96.01 Acute respiratory failure with hypoxia; J12.9 Viral pneumonia, unspecified; F11.20 Opioid dependence, uncomplicated; E87.3 Alkalosis; J45.909 Unspecified asthma, uncomplicated; F17.210 Nicotine dependence, cigarettes, uncomplicated; E87.6 Hypokalemia; F15.10 Other stimulant abuse, uncomplicated; B34.8 Other viral infections of unspecified site; B18.2 Chronic viral hepatitis C; Z68.39 Body mass index [BMI] 39.0-39.9, adult; E66.9 Obesity, unspecified; M54.30 Sciatica, unspecified side; F41.8 Other specified anxiety disorders
CPT/HCPCS: 36415; 36600; 71045; 71260; 80048; 80053; 80202; 82803; 83605; 83735; 84100; 84145; 84484; 84702; 85025; 85027; 86317; 86701; 86702; 86704; 86708; 86803; 87040; 87070; 87205; 87340; 87449; 87486; 87522; 87581; 87633; 87798; 87804; 93005; 93010; 93306; 94640; 94660; 94762; 96365; 96367; 96375; 96376; 99285-25; C1751; J0696; J0713; J1650; J1956; J2060; J2543; J2920; J2930; J3010; J3370; J3475; J3480; J7030; J7050; Q9967

== ENCOUNTER → 2018-10-29 | Outpatient (CLI) | payer OTHER ==
[~2018-10-29] MED LIST changes: +ALPR.25 PO
== END | disposition home or self-care (01) ==
LOC: PLD 12:43 → LAB SHORT 12:43
DX: R21 Rash and other nonspecific skin eruption (principal)
CPT/HCPCS: 88305; 88312

== ENCOUNTER 2020-03-27 19:26 | Inpatient (IN) | payer OTHER ==
[~2020-03-27] VITALS: Ht 160 cm; Wt 118.4 kg
[~2020-03-27 19:26] MED LIST changes: +Seroquel Xr50 MG PO
[2020-03-27 20:34] LABS: BASOPHILS ABSOLUTE AUTO 0.04 K/mm3 (0.00-0.23); BASOPHILS PERCENT AUTO 1 % (0-2); EOSINOPHILS ABSOLUTE AUTO 0.26 K/mm3 (0.00-0.68); EOSINOPHILS PERCENT AUTO 3 % (0-6); Hematocrit 32.9 % (33.0-51.0); Hemoglobin 10.4 g/dL (11.5-16.0); IMMATURE GRAN ABSOLUTE AUTO 0.08 K/mm3 (0.00-0.10); IMMATURE GRAN PERCENT AUTO 1 % (0-1); LYMPHOCYTES ABSOLUTE AUTO 1.53 K/mm3 (0.84-5.20); LYMPHOCYTES PERCENT AUTO 18 % (21-46); MONOCYTES ABSOLUTE AUTO 0.48 K/mm3 (0.16-1.47); MONOCYTES PERCENT AUTO 6 % (4-13); Mean Corpuscular HGB 26.9 pg (26.0-34.0); Mean Corpuscular HGB Conc 31.6 g/dL (31.5-36.5); Mean Corpuscular Volume 85 fL (80-100); NEUTROPHILS ABSOLUTE AUTO 6.28 K/mm3 (1.96-9.15); NEUTROPHILS PERCENT AUTO 73 % (41-73); NRBC ABSOLUTE 0.02 K/mm3 (0.00-0.02); NRBC Auto 0.2 /100 WBC (0.0-0.2); RDW Coefficient Variation 13.4 % (11.7-14.2); Red Blood Cell Count 3.86 M/mm3 (3.80-5.20); White Blood Cell Count 8.67 K/mm3 (4.00-11.30)
[2020-03-27 20:36] LABS: Mean Platelet Volume 10.3 fL (9.1-12.4)
[2020-03-27 20:41] LABS: Alanine Aminotransfer (ALT/SGP 16 U/L (12-78); Albumin/Globulin Ratio 0.7 (0.8-1.8); Alk Phos 119 U/L (50-136); Anion Gap 5 mmol/L (6-16); Aspartate Aminotrans (AST/SGOT 20 U/L (12-37); Bilirubin, Total 0.5 mg/dL (0.1-1.0); Blood Urea Nitrogen 10 mg/dL (8-24); Bun/Creatinine Ratio 16.2 (12.0-20.0); CO2, Blood 27 mmol/L (21-32); Calcium, Blood 8.4 mg/dL (8.5-10.1); Chloride, Blood 105 mmol/L (98-108); Creatinine, Blood 0.62 mg/dL (0.40-1.00); Globulin, Blood 4.2 g/dL (2.2-4.0); Glomerular Filtration Rate >60 (60-); Glucose, Blood 107 mg/dL (70-99); Potassium, Blood 3.4 mmol/L (3.5-5.5); Sodium, Blood 137 mmol/L (136-145); Total Protein, Blood 7.2 g/dL (6.4-8.2); Troponin I <0.015 ng/mL (0.000-0.040)
[2020-03-27] MEDS ORDERED: CLON.2 PO (20:47)
[2020-03-27 20:58] LABS: Platelet Count 283 K/mm3 (150-400)
[2020-03-27 21:28] LABS: Adenovirus Not Detected (NOT DETECT); Coronavirus 229E Not Detected (NOT DETECT); Coronavirus HKU1 Not Detected (NOT DETECT); Coronavirus NL63 Not Detected (NOT DETECT); Coronavirus OC43 Not Detected (NOT DETECT); Human Metapneumovirus Not Detected (NOT DETECT); Human Rhinovirus/Enterovirus Not Detected (NOT DETECT); Influenza A/2009-H1 Not Detected (NOT DETECT); Influenza A/H1 Not Detected (NOT DETECT); Influenza A/H3 Not Detected (NOT DETECT); Influenza B Not Detected (NOT DETECT); Parainfluenza Virus 1 Not Detected (NOT DETECT); Parainfluenza Virus 2 Not Detected (NOT DETECT); Parainfluenza Virus 3 Not Detected (NOT DETECT); Parainfluenza Virus 4 Not Detected (NOT DETECT); Respiratory Syncytial Virus Not Detected (NOT DETECT); SARS-Cov-2 (COVID-19), BioFire Not Detected (NOT DETECT)
[2020-03-27 21:29] LABS: Bordetella pertussis Not Detected (NOT DETECT); Chlamydophila pneumoniae Not Detected (NOT DETECT); Mycoplasma pneumoniae Not Detected (NOT DETECT)
[2020-03-28 04:36] LABS: BASOPHILS ABSOLUTE AUTO 0.02 K/mm3 (0.00-0.23); BASOPHILS PERCENT AUTO 0 % (0-2); EOSINOPHILS ABSOLUTE AUTO 0.01 K/mm3 (0.00-0.68); EOSINOPHILS PERCENT AUTO 0 % (0-6); Hematocrit 34.2 % (33.0-51.0); Hemoglobin 10.9 g/dL (11.5-16.0); IMMATURE GRAN PERCENT AUTO 1 % (0-1); LYMPHOCYTES ABSOLUTE AUTO 0.84 K/mm3 (0.84-5.20); LYMPHOCYTES PERCENT AUTO 11 % (21-46); MONOCYTES ABSOLUTE AUTO 0.06 K/mm3 (0.16-1.47); MONOCYTES PERCENT AUTO 1 % (4-13); Mean Corpuscular HGB 26.7 pg (26.0-34.0); Mean Corpuscular HGB Conc 31.9 g/dL (31.5-36.5); Mean Corpuscular Volume 84 fL (80-100); Mean Platelet Volume 10.4 fL (9.1-12.4); NEUTROPHILS ABSOLUTE AUTO 6.71 K/mm3 (1.96-9.15); NEUTROPHILS PERCENT AUTO 87 % (41-73); Platelet Count 349 K/mm3 (150-400); RDW Coefficient Variation 13.2 % (11.7-14.2); RDW Standard Deviation 41.2 fL (35.1-46.3); Red Blood Cell Count 4.08 M/mm3 (3.80-5.20); White Blood Cell Count 7.74 K/mm3 (4.00-11.30)
[2020-03-28 04:58] LABS: Anion Gap 7 mmol/L (6-16); Blood Urea Nitrogen 9 mg/dL (8-24); Bun/Creatinine Ratio 12.8 (12.0-20.0); CO2, Blood 27 mmol/L (21-32); Calcium, Blood 8.7 mg/dL (8.5-10.1); Chloride, Blood 106 mmol/L (98-108); Glomerular Filtration Rate >60 (60-); Glucose, Blood 171 mg/dL (70-99); Sodium, Blood 140 mmol/L (136-145)
--- NOTE | 2020-03-28 05:29 | NUR ---
REPAIRER SCREEN CRUSHER SUMMARY PT A/O X4, INDEPENDENT IN ROOM. DENIES PAIN. SOB WITH EXERTION. CONTINUES TO BE ON 4L VIA NC SATTING IN THE MID TO HIGH 90'S. SCATTERED BRUISING IN ABD, OTHERWISE SKIN APPEARS C.D.I. VSS. PLEASANT AND COOPERATIVE. CALL LIGHT WITHIN REACH.
--- NOTE | 2020-03-28 19:28 | NUR ---
SHIFT SUMMARY: NO ACUTE CHANGES TO REPORT THIS SHIFT. PT A&O; CALM AND COOPERATIVE WITH CARE; INDEPENDENT IN ROOM. NO C/O PAIN OR NAUSEA THIS SHIFT. PG PLACED TO R UA THIS SHIFT. IV STEROIDS & IV ABX CONTINUING. REPORT GIVEN TO ONCOMING RN.
--- NOTE | 2020-03-29 03:47 | NUR ---
HOSPITAL PHARMACY TECHNICIAN SUMMARY NO ACUTE CHANGES NOTED TO PT T/O SHIFT. PT A&OX4, ABLE TO MAKE NEEDS KNOWN. PLEASANT AND COOOPERATIVE TO CARE. PT MEDICATED FOR A MINOR HEADACHE X1 PER EMAR. NO C/O CP, SOB, OR N&V. PT ON 4LPM O2 HUMIDIFIED VIA NC, ON CONT BIOX, SATS ABOVE >92%. PT CONT ON IV AND PO ABX, NO ASE NOTED. PT IN INDEPENDENT IN THE ROOM. PT CALM AND RESTED T/O SHIFT. BED AT LOWEST POSITION. CALL LIGHT WITHIN REACH.
[2020-03-29] MEDS ORDERED: ACET325 PO (14:44)
[2020-03-29] MEDS ORDERED: CEFP200 PO (14:46)
[2020-03-29] MEDS ORDERED: Prednisone10 MG PO (14:48)
--- NOTE | 2020-03-29 15:28 | NUR ---
PATIENT DISCHARGE: PATIENT DISCHARGED TO HOME THIS SHIFT. MEDICATION RECONCILIATION COMPLETED; MED LIST FAXED TO [facility]. DISCHARGE EDUCATION COMPLETED WITH PATIENT AND FAMILY. PATIENT TRRANSPORTED TO EXIT BY [facility] STAFF WITH WHEELCHAIR AT 1525. PATIENT DEPARTED [facility] VIA PRIVATE AUTO.
== END 2020-03-29 15:24 | disposition home or self-care (01) | DRG 193 ==
LOC: ER 19:26 → MEDS 22:51
PROVIDERS: Emergency Medicine; Nurse Practitioner Acute Care; ADMIT Family Medicine
PROC: 3E0234Z Introduction of Serum, Toxoid and Vaccine into Muscle, Percutaneous Approach (ICD-10-PCS; principal; 2020-03-28)
DX: J18.9 Pneumonia, unspecified organism (principal); J96.01 Acute respiratory failure with hypoxia; Z20.822 Contact with and (suspected) exposure to COVID-19; F41.9 Anxiety disorder, unspecified; F32.9 Major depressive disorder, single episode, unspecified; F17.210 Nicotine dependence, cigarettes, uncomplicated; Z23 Encounter for immunization
CPT/HCPCS: 0202U; 36415; 71045; 71260; 80048; 80053; 83605; 83880; 84145; 84484; 84703; 85025; 85379; 86140; 87040; 90670; 94640; 94664; 94762; 96365-59; 96367-59; 96375-59; 99285-25; A9270; C1751; J0456; J0696; J1650; J2930; J7050; Q2038; Q9967

== ENCOUNTER → 2020-12-29 | Outpatient (CLI) | payer OTHER ==
[~2020-12-29] MED LIST changes: +ACET325 PO; +CEFP200 PO; +CLON.2 PO; +Prednisone10 MG PO
[2020-12-29 17:00] LABS: BASOPHILS ABSOLUTE AUTO 0.06 K/mm3 (0.00-0.23); BASOPHILS PERCENT AUTO 1 % (0-2); EOSINOPHILS ABSOLUTE AUTO 0.13 K/mm3 (0.00-0.68); EOSINOPHILS PERCENT AUTO 2 % (0-6); Hematocrit 38.1 % (33.0-51.0); Hemoglobin 11.9 g/dL (11.5-16.0); IMMATURE GRAN ABSOLUTE AUTO 0.03 K/mm3 (0.00-0.10); IMMATURE GRAN PERCENT AUTO 0 % (0-1); LYMPHOCYTES ABSOLUTE AUTO 2.38 K/mm3 (0.84-5.20); LYMPHOCYTES PERCENT AUTO 35 % (21-46); MONOCYTES ABSOLUTE AUTO 0.34 K/mm3 (0.16-1.47); MONOCYTES PERCENT AUTO 5 % (4-13); Mean Corpuscular HGB 26.6 pg (26.0-34.0); Mean Corpuscular HGB Conc 31.2 g/dL (31.5-36.5); Mean Corpuscular Volume 85 fL (80-100); Mean Platelet Volume 10.5 fL (9.1-12.4); NEUTROPHILS ABSOLUTE AUTO 3.96 K/mm3 (1.96-9.15); NEUTROPHILS PERCENT AUTO 57 % (41-73); Platelet Count 337 K/mm3 (150-400); RDW Coefficient Variation 14.6 % (11.7-14.2); RDW Standard Deviation 45.1 fL (35.1-46.3); Red Blood Cell Count 4.48 M/mm3 (3.80-5.20)
[2020-12-29 17:15] LABS: Alanine Aminotransfer (ALT/SGP 25 U/L (12-78); Albumin, Blood 3.6 g/dL (3.4-5.0); Albumin/Globulin Ratio 0.8 (0.8-1.8); Alk Phos 120 U/L (50-136); Anion Gap 4 mmol/L (6-16); Aspartate Aminotrans (AST/SGOT 18 U/L (12-37); Bilirubin, Total 0.3 mg/dL (0.1-1.0); Blood Urea Nitrogen 18 mg/dL (8-24); Bun/Creatinine Ratio 20.3 (12.0-20.0); CO2, Blood 27 mmol/L (21-32); Calcium, Blood 9.2 mg/dL (8.5-10.1); Chloride, Blood 109 mmol/L (98-108); Creatinine, Blood 0.89 mg/dL (0.40-1.00); Globulin, Blood 4.8 g/dL (2.2-4.0); Glomerular Filtration Rate >60 (60-); Glucose, Blood 101 mg/dL (70-99); Sodium, Blood 140 mmol/L (136-145); Total Protein, Blood 8.4 g/dL (6.4-8.2)
[2020-12-31 07:11] LABS: HIV SCREEN 4TH GENERATION WRFX Non Reactive (Non Reactive)
== END | disposition home or self-care (01) ==
LOC: LAB 11:44 → LAB SHORT 11:44
PROVIDERS: Family Medicine
DX: F11.20 Opioid dependence, uncomplicated (principal)
CPT/HCPCS: 80053; 85025; 87389

== ENCOUNTER 2020-12-30 05:02 | Day surgery (SDC) | payer OTHER | END 2020-12-30 22:57 | disposition home or self-care (01) | LOC: WOUND 05:02 | DX: L03.119 Cellulitis of unspecified part of limb (principal); I73.9 Peripheral vascular disease, unspecified; I87.2 Venous insufficiency (chronic) (peripheral) ==

== ENCOUNTER 2021-01-06 03:17 | Day surgery (SDC) | payer OTHER | END 2021-01-06 23:49 | disposition home or self-care (01) | LOC: WOUND 03:17 | DX: S81.802A Unspecified open wound, left lower leg, initial encounter (principal); X58.XXXA Exposure to other specified factors, initial encounter; L03.119 Cellulitis of unspecified part of limb; I73.9 Peripheral vascular disease, unspecified; I87.2 Venous insufficiency (chronic) (peripheral) | CPT/HCPCS: A9270 ==

== ENCOUNTER 2021-01-08 05:27 | Day surgery (SDC) | payer OTHER | END 2021-01-08 23:59 | disposition home or self-care (01) | LOC: WOUND 05:27 | DX: L03.119 Cellulitis of unspecified part of limb (principal); I73.9 Peripheral vascular disease, unspecified; I87.2 Venous insufficiency (chronic) (peripheral) ==

== ENCOUNTER 2021-01-11 04:17 | Day surgery (SDC) | payer OTHER | END 2021-01-11 23:04 | disposition home or self-care (01) | LOC: WOUND 04:17 | DX: S81.802A Unspecified open wound, left lower leg, initial encounter (principal); X58.XXXA Exposure to other specified factors, initial encounter; L03.119 Cellulitis of unspecified part of limb; I73.9 Peripheral vascular disease, unspecified; I87.2 Venous insufficiency (chronic) (peripheral) ==

== ENCOUNTER 2021-01-13 05:09 | Day surgery (SDC) | payer OTHER | END 2021-01-13 23:29 | disposition home or self-care (01) | LOC: WOUND 05:09 | DX: L03.119 Cellulitis of unspecified part of limb (principal); I73.9 Peripheral vascular disease, unspecified; I87.2 Venous insufficiency (chronic) (peripheral) ==

== ENCOUNTER 2021-01-18 04:18 | Day surgery (SDC) | payer OTHER | END 2021-01-18 22:45 | disposition home or self-care (01) | LOC: WOUND | DX: L03.119 Cellulitis of unspecified part of limb (principal); I73.9 Peripheral vascular disease, unspecified; I87.2 Venous insufficiency (chronic) (peripheral) ==

== ENCOUNTER 2021-01-20 01:51 | Day surgery (SDC) | payer OTHER | END 2021-01-20 23:08 | disposition home or self-care (01) | LOC: WOUND 01:51 | DX: L97.822 Non-pressure chronic ulcer of other part of left lower leg with fat layer exposed (principal); L03.119 Cellulitis of unspecified part of limb; I73.9 Peripheral vascular disease, unspecified; I87.2 Venous insufficiency (chronic) (peripheral) | CPT/HCPCS: A9270 ==

== ENCOUNTER 2021-01-27 00:10 | Day surgery (SDC) | payer OTHER | END 2021-01-27 23:10 | disposition home or self-care (01) | LOC: WOUND 00:10 | DX: L97.822 Non-pressure chronic ulcer of other part of left lower leg with fat layer exposed (principal); L03.119 Cellulitis of unspecified part of limb; I73.9 Peripheral vascular disease, unspecified; I87.2 Venous insufficiency (chronic) (peripheral) ==

== ENCOUNTER 2021-01-29 04:34 | Day surgery (SDC) | payer OTHER | END 2021-01-29 23:01 | disposition home or self-care (01) | LOC: WOUND 04:34 | DX: L97.822 Non-pressure chronic ulcer of other part of left lower leg with fat layer exposed (principal); L03.119 Cellulitis of unspecified part of limb; I73.9 Peripheral vascular disease, unspecified; I87.2 Venous insufficiency (chronic) (peripheral) ==

== ENCOUNTER 2021-02-01 04:40 | Day surgery (SDC) | payer OTHER | END 2021-02-01 22:47 | disposition home or self-care (01) | LOC: WOUND 04:40 | DX: L97.822 Non-pressure chronic ulcer of other part of left lower leg with fat layer exposed (principal); L03.119 Cellulitis of unspecified part of limb; I73.9 Peripheral vascular disease, unspecified; I87.2 Venous insufficiency (chronic) (peripheral) ==

== ENCOUNTER 2021-02-24 04:54 | Day surgery (SDC) | payer OTHER | END 2021-02-24 23:41 | disposition home or self-care (01) | LOC: WOUND 04:54 | DX: L97.825 Non-pressure chronic ulcer of other part of left lower leg with muscle involvement without evidence of necrosis (principal); L03.119 Cellulitis of unspecified part of limb; I73.9 Peripheral vascular disease, unspecified; I87.2 Venous insufficiency (chronic) (peripheral) | CPT/HCPCS: A9270 ==

== ENCOUNTER 2021-03-05 06:07 | Day surgery (SDC) | payer OTHER | END 2021-03-05 23:41 | disposition home or self-care (01) | LOC: WOUND 06:07 | DX: L97.822 Non-pressure chronic ulcer of other part of left lower leg with fat layer exposed (principal); L03.119 Cellulitis of unspecified part of limb; I73.9 Peripheral vascular disease, unspecified; I87.2 Venous insufficiency (chronic) (peripheral) | CPT/HCPCS: A9270 ==

== ENCOUNTER 2021-03-08 03:06 | Day surgery (SDC) | payer OTHER | END 2021-03-08 22:38 | disposition home or self-care (01) | LOC: WOUND 03:06 | DX: L97.822 Non-pressure chronic ulcer of other part of left lower leg with fat layer exposed (principal); L03.119 Cellulitis of unspecified part of limb; I73.9 Peripheral vascular disease, unspecified; I87.2 Venous insufficiency (chronic) (peripheral) ==

== ENCOUNTER 2021-03-12 05:19 | Day surgery (SDC) | payer OTHER | END 2021-03-12 12:00 | disposition home or self-care (01) | LOC: WOUND 05:19 | DX: L97.825 Non-pressure chronic ulcer of other part of left lower leg with muscle involvement without evidence of necrosis (principal); L03.119 Cellulitis of unspecified part of limb; I73.9 Peripheral vascular disease, unspecified; I87.2 Venous insufficiency (chronic) (peripheral) | CPT/HCPCS: A9270 ==

== ENCOUNTER 2021-03-15 03:11 | Day surgery (SDC) | payer OTHER | END 2021-03-15 23:28 | disposition home or self-care (01) | LOC: WOUND 03:11 | DX: L97.825 Non-pressure chronic ulcer of other part of left lower leg with muscle involvement without evidence of necrosis (principal); I87.2 Venous insufficiency (chronic) (peripheral); I73.9 Peripheral vascular disease, unspecified | CPT/HCPCS: A9270 ==

== ENCOUNTER 2021-03-23 01:04 | Day surgery (SDC) | payer OTHER | END 2021-03-23 01:08 | disposition home or self-care (01) | LOC: WOUND 01:04 | DX: L97.822 Non-pressure chronic ulcer of other part of left lower leg with fat layer exposed (principal); L03.119 Cellulitis of unspecified part of limb; I73.9 Peripheral vascular disease, unspecified; I87.2 Venous insufficiency (chronic) (peripheral) ==

== ENCOUNTER 2021-03-26 00:41 | Day surgery (SDC) | payer OTHER | END 2021-03-26 23:33 | disposition home or self-care (01) | LOC: WOUND 00:41 | DX: L97.825 Non-pressure chronic ulcer of other part of left lower leg with muscle involvement without evidence of necrosis (principal); L03.119 Cellulitis of unspecified part of limb; I73.9 Peripheral vascular disease, unspecified; I87.2 Venous insufficiency (chronic) (peripheral) | CPT/HCPCS: A9270 ==

== ENCOUNTER 2021-04-02 02:03 | Day surgery (SDC) | payer OTHER | END 2021-04-02 12:00 | disposition home or self-care (01) | LOC: WOUND 02:03 | DX: L97.825 Non-pressure chronic ulcer of other part of left lower leg with muscle involvement without evidence of necrosis (principal); I87.2 Venous insufficiency (chronic) (peripheral); I73.9 Peripheral vascular disease, unspecified | CPT/HCPCS: A9270 ==

== ENCOUNTER 2021-04-06 04:17 | Day surgery (SDC) | payer OTHER | END 2021-04-06 22:36 | disposition home or self-care (01) | LOC: WOUND 04:17 | DX: L97.825 Non-pressure chronic ulcer of other part of left lower leg with muscle involvement without evidence of necrosis (principal); I87.2 Venous insufficiency (chronic) (peripheral); I73.9 Peripheral vascular disease, unspecified | CPT/HCPCS: A9270 ==

== ENCOUNTER 2021-04-13 04:06 | Day surgery (SDC) | payer OTHER | END 2021-04-13 22:42 | disposition home or self-care (01) | LOC: WOUND 04:06 | DX: L97.825 Non-pressure chronic ulcer of other part of left lower leg with muscle involvement without evidence of necrosis (principal); L03.116 Cellulitis of left lower limb; I73.9 Peripheral vascular disease, unspecified; I87.2 Venous insufficiency (chronic) (peripheral) | CPT/HCPCS: A9270 ==

== ENCOUNTER 2021-04-16 02:29 | Day surgery (SDC) | payer OTHER | END 2021-04-16 23:54 | disposition home or self-care (01) | LOC: WOUND 02:29 | DX: L97.825 Non-pressure chronic ulcer of other part of left lower leg with muscle involvement without evidence of necrosis (principal); I87.2 Venous insufficiency (chronic) (peripheral) ==

== ENCOUNTER 2021-04-23 00:43 | Day surgery (SDC) | payer OTHER | END 2021-04-23 22:50 | disposition home or self-care (01) | LOC: WOUND 00:43 | DX: L97.825 Non-pressure chronic ulcer of other part of left lower leg with muscle involvement without evidence of necrosis (principal); I87.2 Venous insufficiency (chronic) (peripheral); I73.9 Peripheral vascular disease, unspecified | CPT/HCPCS: A9270 ==

== ENCOUNTER 2021-04-27 06:01 | Day surgery (SDC) | payer OTHER | END 2021-04-27 23:53 | disposition home or self-care (01) | LOC: WOUND 06:01 | DX: L97.825 Non-pressure chronic ulcer of other part of left lower leg with muscle involvement without evidence of necrosis (principal); I87.2 Venous insufficiency (chronic) (peripheral); I73.9 Peripheral vascular disease, unspecified | CPT/HCPCS: A9270 ==

== ENCOUNTER 2021-04-30 00:42 | Day surgery (SDC) | payer OTHER | END 2021-04-30 23:49 | disposition home or self-care (01) | LOC: WOUND 00:42 | DX: L97.822 Non-pressure chronic ulcer of other part of left lower leg with fat layer exposed (principal); I73.9 Peripheral vascular disease, unspecified; I87.2 Venous insufficiency (chronic) (peripheral) ==

== ENCOUNTER 2021-05-04 04:44 | Day surgery (SDC) | payer OTHER | END 2021-05-04 23:51 | disposition home or self-care (01) | LOC: WOUND 04:44 | DX: L97.825 Non-pressure chronic ulcer of other part of left lower leg with muscle involvement without evidence of necrosis (principal); I73.9 Peripheral vascular disease, unspecified; I87.2 Venous insufficiency (chronic) (peripheral) | CPT/HCPCS: A9270; G0463 ==

== ENCOUNTER 2021-05-07 02:43 | Day surgery (SDC) | payer OTHER | END 2021-05-07 23:16 | disposition home or self-care (01) | LOC: WOUND 02:43 | DX: L97.822 Non-pressure chronic ulcer of other part of left lower leg with fat layer exposed (principal); I73.9 Peripheral vascular disease, unspecified; I87.2 Venous insufficiency (chronic) (peripheral) ==

== ENCOUNTER 2021-05-11 01:55 | Day surgery (SDC) | payer OTHER | END 2021-05-11 23:15 | disposition home or self-care (01) | LOC: WOUND 01:55 | DX: L97.822 Non-pressure chronic ulcer of other part of left lower leg with fat layer exposed (principal); I73.9 Peripheral vascular disease, unspecified; I87.2 Venous insufficiency (chronic) (peripheral) ==

== ENCOUNTER 2021-05-18 01:43 | Day surgery (SDC) | payer OTHER | END 2021-05-18 22:52 | disposition home or self-care (01) | LOC: WOUND 01:43 | DX: L97.822 Non-pressure chronic ulcer of other part of left lower leg with fat layer exposed (principal); I73.9 Peripheral vascular disease, unspecified; I87.2 Venous insufficiency (chronic) (peripheral) | CPT/HCPCS: A9270 ==

== ENCOUNTER 2021-05-24 00:45 | Day surgery (SDC) | payer OTHER | END 2021-05-24 23:13 | disposition home or self-care (01) | LOC: WOUND 00:45 | DX: L97.822 Non-pressure chronic ulcer of other part of left lower leg with fat layer exposed (principal); I87.2 Venous insufficiency (chronic) (peripheral); I73.9 Peripheral vascular disease, unspecified | CPT/HCPCS: A9270 ==

== ENCOUNTER 2021-06-01 01:01 | Day surgery (SDC) | payer OTHER | END 2021-06-01 22:56 | disposition home or self-care (01) | LOC: WOUND 01:01 | DX: L97.822 Non-pressure chronic ulcer of other part of left lower leg with fat layer exposed (principal) | CPT/HCPCS: A9270 ==

== ENCOUNTER 2021-06-04 03:07 | Day surgery (SDC) | payer OTHER | END 2021-06-04 23:10 | disposition home or self-care (01) | LOC: WOUND 03:07 | DX: L97.822 Non-pressure chronic ulcer of other part of left lower leg with fat layer exposed (principal); I73.9 Peripheral vascular disease, unspecified; I87.2 Venous insufficiency (chronic) (peripheral) ==

== ENCOUNTER 2021-06-08 02:02 | Day surgery (SDC) | payer OTHER | END 2021-06-08 23:27 | disposition home or self-care (01) | LOC: WOUND 02:02 | DX: L97.822 Non-pressure chronic ulcer of other part of left lower leg with fat layer exposed (principal); I73.9 Peripheral vascular disease, unspecified; I87.2 Venous insufficiency (chronic) (peripheral) ==

== ENCOUNTER 2021-06-15 00:56 | Day surgery (SDC) | payer OTHER | END 2021-06-15 23:46 | disposition home or self-care (01) | LOC: WOUND 00:56 | DX: L97.822 Non-pressure chronic ulcer of other part of left lower leg with fat layer exposed (principal); I73.9 Peripheral vascular disease, unspecified; I87.2 Venous insufficiency (chronic) (peripheral) | CPT/HCPCS: A9270 ==

== ENCOUNTER → 2021-07-28 | Outpatient (CLI) | payer OTHER | END | disposition home or self-care (01) | LOC: LAB SHORT 19:40 → LAB 19:40 | DX: S81.812A Laceration without foreign body, left lower leg, initial encounter (principal) | CPT/HCPCS: 87070; 87075; 87077; 87147; 87186; 87205 ==

== ENCOUNTER 2022-07-11 21:23 | Inpatient (IN) | payer OTHER ==
[~2022-07-11] VITALS: Ht 157.5 cm; Wt 127.2 kg
[2022-07-11 22:32] LABS: Mean Corpuscular HGB 29.9 pg (26.0-34.0); RDW Coefficient Variation 13.9 % (11.7-14.2)
[2022-07-11 22:41] LABS: Hematocrit 42.4 % (33.0-51.0); Hemoglobin 14.3 g/dL (11.5-16.0); Mean Corpuscular HGB Conc 33.7 g/dL (31.5-36.5); Mean Corpuscular Volume 89 fL (80-100); RDW Standard Deviation 45.4 fL (35.1-46.3); Red Blood Cell Count 4.79 M/mm3 (3.80-5.20); White Blood Cell Count 22.68 K/mm3 (4.00-11.30)
[2022-07-11 22:50] LABS: Mean Platelet Volume 10.7 fL (9.1-12.4)
[2022-07-11 22:53] LABS: Albumin, Blood 3.1 g/dL (3.4-5.0); Albumin/Globulin Ratio 0.7 (0.8-1.8); Bilirubin, Total 0.9 mg/dL (0.1-1.0); Bun/Creatinine Ratio 17.9 (12.0-20.0); Calcium, Blood 8.4 mg/dL (8.5-10.1); Creatinine, Blood 0.56 mg/dL (0.40-1.00); Globulin, Blood 4.3 g/dL (2.2-4.0); Potassium, Blood 3.9 mmol/L (3.5-5.5); Total Protein, Blood 7.4 g/dL (6.4-8.2)
[2022-07-11 23:47] LABS: BAND PERCENT MAN 3 % (0-8); BASOPHILS PERCENT MAN 0 % (0-2); EOSINOPHILS PERCENT MAN 0 % (0-6); LYMPHOCYTES ABSOLUTE MAN 1.13 K/mm3 (0.84-5.20); LYMPHOCYTES PERCENT MAN 5 % (21-46); MONOCYTES ABSOLUTE MAN 0.45 K/mm3 (0.16-1.47); MONOCYTES PERCENT MAN 2 % (4-13); NEUTROPHILS ABSOLUTE MAN 21.09 K/mm3 (1.96-9.15); SEG NEUTROPHILS PERCENT MAN 90 % (41-73); TOTAL CELLS COUNTED 100
[2022-07-11 23:49] LABS: Platelet Count 154 K/mm3 (150-400)
[2022-07-12] MEDS ORDERED: QUETIAPINE FUMA50 M2 PO (00:58)
[2022-07-12 01:01] VITALS: BP 127/100
[2022-07-12] MEDS ORDERED: NEURONTIN300 MG PO (01:20)
[2022-07-12] MEDS ORDERED: CATAPRES0.1 MG PO (01:21)
--- NOTE | 2022-07-12 01:27 | NUR ---
ADMIT NOTE HANDOFF RECEIVED FROM MILL TENDER WASHING PHILLIP. PT ARRIVE TO FLOOR VIA GURNEY. IV ANTIB RX INFUSING. PT ORIENTED TO UNIT. CALL BUTTON WITHIN REACH. IV VANCO STOPPED, HIVES NOTED ON PT. CHARGE PLACED CALL TO HOSPITALIST. AWAITING ORDERS.
--- NOTE | 2022-07-12 01:28 | NUR ---
NOTIFIED DR MCCANN OF POSSIBLE VANCO REACTION. PT REPORTS BURNING AND HIVES. NOTED HIVES FROM LEFT HAND UP TO LEFT ELBOW. VANCO STOPPED. LEFT HAND IV FLUSHED AND SALINE LOCKED. PER DR MCCANN, SINCE PT HAS RECEIVED VANCO IN PAST ADMITS WITH NO REACTION TO BEGIN INFUSING ON THE YANELIS IV SITE AND MONITOR FOR REACTION. ORDER RECEIVED TO GIVE 12.5 MG BENADRYL IV AND IF NO EFFECT IN 30-40 MINS GIVE ANOTHER 12.5 MG OF BENADRYL IV. NOTIFY DR MCCANN IF PT DEVELOPS A REACTION AFTER RESUMING VANCO.
--- NOTE | 2022-07-12 01:55 | NUR ---
RESTARTED VANCO INFUSION AT 135 MLS/HR TO YANELIS IV SITE. PT REPORTS NO REACTION. REPORTS NO BURNING. NO NOTED HIVES ON YANELIS. 12.5 MG BENADRYL GIVEN IV. WILL REASSESS PT.
[2022-07-12 04:51] VITALS: BP 116/93
--- NOTE | 2022-07-12 05:12 | NUR ---
SHIFT SUMMARY ADMITTED FOR LLE NON-HEALING WOUND/SEPSIS. FULL CODE. IV ANTIB RX AND IV FLUIDS INFUSING. ADA DIET. PHOTOS OF WOUND IN CHART. WOUND IS OPEN TO AIR. SHE IS A&O X4, INDEPENDENT.
[2022-07-12 07:35] VITALS: BP 150/85
[2022-07-12 10:17] LABS: Hematocrit 37.8 % (33.0-51.0); Hemoglobin 12.8 g/dL (11.5-16.0); Mean Corpuscular HGB 29.9 pg (26.0-34.0); Mean Corpuscular HGB Conc 33.9 g/dL (31.5-36.5); Mean Corpuscular Volume 88 fL (80-100); Mean Platelet Volume 10.4 fL (9.1-12.4); Platelet Count 180 K/mm3 (150-400); RDW Coefficient Variation 14.2 % (11.7-14.2); RDW Standard Deviation 46.1 fL (35.1-46.3); Red Blood Cell Count 4.28 M/mm3 (3.80-5.20); White Blood Cell Count 20.37 K/mm3 (4.00-11.30)
[2022-07-12 10:56] LABS: BAND PERCENT MAN 14 % (0-8); BASOPHILS PERCENT MAN 0 % (0-2); EOSINOPHILS PERCENT MAN 0 % (0-6); LYMPHOCYTES ABSOLUTE MAN 0.81 K/mm3 (0.84-5.20); LYMPHOCYTES PERCENT MAN 4 % (21-46); MONOCYTES ABSOLUTE MAN 0.61 K/mm3 (0.16-1.47); MONOCYTES PERCENT MAN 3 % (4-13); NEUTROPHILS ABSOLUTE MAN 18.94 K/mm3 (1.96-9.15); SEG NEUTROPHILS PERCENT MAN 79 % (41-73); TOTAL CELLS COUNTED 100
[2022-07-12 11:16] LABS: Albumin, Blood 2.5 g/dL (3.4-5.0); Anion Gap 5 mmol/L (6-16); Blood Urea Nitrogen 8 mg/dL (8-24); Bun/Creatinine Ratio 12.6 (12.0-20.0); CO2, Blood 24 mmol/L (21-32); Calcium, Blood 7.7 mg/dL (8.5-10.1); Chloride, Blood 107 mmol/L (98-108); Creatinine, Blood 0.63 mg/dL (0.40-1.00); Glomerular Filtration Rate 117 (60-); Glucose, Blood 115 mg/dL (70-99); Phosphorus, Blood 2.7 mg/dL (2.5-4.9); Potassium, Blood 3.3 mmol/L (3.5-5.5); Sodium, Blood 136 mmol/L (136-145)
[2022-07-12 15:36] VITALS: BP 105/67
--- NOTE | 2022-07-12 17:01 | NUR ---
SHIFT SUMMARY NO ACUTE CHANGES DURING SHIFT. PT ALERT AND ORIENTED, CALLS APPROPRIATELY. PT REMAINS ON RA, INDEPENDENT IN ROOM. WOUND TO LLPower LEAH. PT PENDING PODIATRY CONSULT, TO BE CALLED TOMORROW, NO WEATHER STRIP MECHANIC COVERAGE TODAY. IV ABX, WOUND CX SENT TODAY. NO C/O PAIN. WILL CONTINUE TO MONITOR. CALL LIGHT WITHIN REACH.
[2022-07-12 20:06] VITALS: BP 108/53
[2022-07-13 04:53] VITALS: BP 132/63
[2022-07-13 06:03] LABS: Hematocrit 36.9 % (33.0-51.0); Hemoglobin 12.2 g/dL (11.5-16.0); Mean Corpuscular HGB 29.5 pg (26.0-34.0); Mean Corpuscular HGB Conc 33.1 g/dL (31.5-36.5); Mean Corpuscular Volume 89 fL (80-100); Mean Platelet Volume 10.9 fL (9.1-12.4); Platelet Count 179 K/mm3 (150-400); RDW Coefficient Variation 14.3 % (11.7-14.2); Red Blood Cell Count 4.13 M/mm3 (3.80-5.20); White Blood Cell Count 12.65 K/mm3 (4.00-11.30)
[2022-07-13 06:17] LABS: Albumin, Blood 2.4 g/dL (3.4-5.0); Anion Gap 5 mmol/L (6-16); Blood Urea Nitrogen 12 mg/dL (8-24); Bun/Creatinine Ratio 17.8 (12.0-20.0); CO2, Blood 25 mmol/L (21-32); Calcium, Blood 7.6 mg/dL (8.5-10.1); Chloride, Blood 109 mmol/L (98-108); Creatinine, Blood 0.68 mg/dL (0.40-1.00); Glomerular Filtration Rate 115 (60-); Glucose, Blood 89 mg/dL (70-99); Phosphorus, Blood 1.5 mg/dL (2.5-4.9); Potassium, Blood 3.4 mmol/L (3.5-5.5); Sodium, Blood 139 mmol/L (136-145)
[2022-07-13 07:01] LABS: BAND PERCENT MAN 13 % (0-8); BASOPHILS PERCENT MAN 0 % (0-2); EOSINOPHILS PERCENT MAN 0 % (0-6); LYMPHOCYTES ABSOLUTE MAN 1.26 K/mm3 (0.84-5.20); LYMPHOCYTES PERCENT MAN 10 % (21-46); MONOCYTES ABSOLUTE MAN 0.25 K/mm3 (0.16-1.47); MONOCYTES PERCENT MAN 2 % (4-13); NEUTROPHILS ABSOLUTE MAN 11.13 K/mm3 (1.96-9.15); SEG NEUTROPHILS PERCENT MAN 75 % (41-73); TOTAL CELLS COUNTED 100
[2022-07-13 08:33] VITALS: BP 133/74
[2022-07-13 10:56] LABS: Vancomycin, Trough 12.4 ug/mL (5.0-10.0)
--- NOTE | 2022-07-13 13:22 | NUR ---
WOUND CARE PT FORMER WOUND CLINIC PT AND KNOWN TO THIS RN. D/T PAST TREATMENT PLAN AND LE WOUND FAILURE TO RESPOND TO CONVENTIONAL WOUND CARE ALONG WITH WOUND PRESENTATION THIS RN SPOKE WITH DR. 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 DR. BRANHAM EXAMINED BEDSIDE AND DERM CONSULT PLACED. WOUND LEFT OPEN TO AIR FOR DERM CONSULT AND RECOMMENDATIONS
--- NOTE | 2022-07-13 13:31 | NUR ---
CONSULT DERM CONSULT CALLED TO DR JAVIER RECEPTINIST.
[2022-07-13 16:52] VITALS: BP 149/75
--- NOTE | 2022-07-13 17:34 | NUR ---
SHIFT SUMMARY MS OKEEFE HAS SLEPT MUCH OF THIS SHIFT. PT SEEN BY TOOL MAINTENANCE WORKER, DR VARGAS, DR JAVIER. DR JAVIER SAID SHE WILL FOLLOW UP TOMORROW. POWER GLIDE PLACED PT RECEIVING ABX AND ELECTROLYTE REPLACEMENT. UP INDEPENDENT TO BATHROOM. PAIN CONTROL WITH TYLENOL/IBUPROFEN. LEFT LEG ELEVATED ON PILLOWS. BED LOW, CALL LIGHT IN REACH.
[2022-07-13 20:12] VITALS: BP 119/55
[2022-07-14 04:51] VITALS: BP 117/65
[2022-07-14 06:40] LABS: BASOPHILS ABSOLUTE AUTO 0.04 K/mm3 (0.00-0.23); BASOPHILS PERCENT AUTO 0 % (0-2); EOSINOPHILS ABSOLUTE AUTO 0.18 K/mm3 (0.00-0.68); EOSINOPHILS PERCENT AUTO 2 % (0-6); Hematocrit 34.2 % (33.0-51.0); Hemoglobin 11.7 g/dL (11.5-16.0); IMMATURE GRAN ABSOLUTE AUTO 0.08 K/mm3 (0.00-0.10); IMMATURE GRAN PERCENT AUTO 1 % (0-1); LYMPHOCYTES ABSOLUTE AUTO 2.05 K/mm3 (0.84-5.20); LYMPHOCYTES PERCENT AUTO 20 % (21-46); MONOCYTES ABSOLUTE AUTO 0.58 K/mm3 (0.16-1.47); MONOCYTES PERCENT AUTO 6 % (4-13); Mean Corpuscular HGB 29.8 pg (26.0-34.0); Mean Corpuscular HGB Conc 34.2 g/dL (31.5-36.5); Mean Corpuscular Volume 87 fL (80-100); Mean Platelet Volume 10.8 fL (9.1-12.4); NEUTROPHILS ABSOLUTE AUTO 7.53 K/mm3 (1.96-9.15); NEUTROPHILS PERCENT AUTO 72 % (41-73); Platelet Count 201 K/mm3 (150-400); RDW Coefficient Variation 14.5 % (11.7-14.2); RDW Standard Deviation 46.9 fL (35.1-46.3); Red Blood Cell Count 3.93 M/mm3 (3.80-5.20); White Blood Cell Count 10.46 K/mm3 (4.00-11.30)
[2022-07-14 06:56] LABS: Albumin, Blood 2.1 g/dL (3.4-5.0); Anion Gap 4 mmol/L (6-16); Blood Urea Nitrogen 8 mg/dL (8-24); Bun/Creatinine Ratio 12.3 (12.0-20.0); CO2, Blood 27 mmol/L (21-32); Calcium, Blood 7.7 mg/dL (8.5-10.1); Chloride, Blood 111 mmol/L (98-108); Creatinine, Blood 0.65 mg/dL (0.40-1.00); Glomerular Filtration Rate 116 (60-); Glucose, Blood 91 mg/dL (70-99); Magnesium, Blood 1.9 mg/dL (1.6-2.4); Phosphorus, Blood 2.4 mg/dL (2.5-4.9); Potassium, Blood 3.3 mmol/L (3.5-5.5); Sodium, Blood 142 mmol/L (136-145)
[2022-07-14 07:57] VITALS: BP 114/55
[2022-07-14 16:04] VITALS: BP 125/69
[2022-07-15 00:23] LABS: Vancomycin, Trough 10.5 ug/mL (5.0-10.0)
[2022-07-15 05:31] VITALS: BP 144/78
[2022-07-15 05:51] LABS: Hematocrit 35.2 % (33.0-51.0); Mean Corpuscular HGB 30.1 pg (26.0-34.0); Mean Corpuscular HGB Conc 34.1 g/dL (31.5-36.5); Mean Corpuscular Volume 88 fL (80-100); Mean Platelet Volume 10.7 fL (9.1-12.4); Platelet Count 214 K/mm3 (150-400); RDW Coefficient Variation 14.8 % (11.7-14.2); RDW Standard Deviation 47.2 fL (35.1-46.3); Red Blood Cell Count 3.99 M/mm3 (3.80-5.20); White Blood Cell Count 9.43 K/mm3 (4.00-11.30)
[2022-07-15 06:11] LABS: Bun/Creatinine Ratio 10.8 (12.0-20.0); Calcium, Blood 8.3 mg/dL (8.5-10.1); Creatinine, Blood 0.65 mg/dL (0.40-1.00); Potassium, Blood 3.2 mmol/L (3.5-5.5)
--- NOTE | 2022-07-15 07:47 | NUR ---
Shift Summary Dressing on L burgess remain C/D/I. No C/O pain or nausea t/o the night. PG in [place] draws blood for lab draws. Awaiting wound biopsy results.
[2022-07-15 07:51] VITALS: BP 144/80
[2022-07-15 16:00] VITALS: BP 145/96
--- NOTE | 2022-07-15 17:26 | NUR ---
SHIFT SUMMARY- NO ACUTE EVENTS THIS SHIFT. ZERO TO MILD PAIN IN LLE. NO PAIN MEDS ADMINISTERED PER PT REQUEST. PT INDEPENDENT IN ROOM. AAOX4.
[2022-07-15 19:44] VITALS: BP 132/85
[2022-07-16 04:29] VITALS: BP 134/62
--- NOTE | 2022-07-16 06:55 | NUR ---
Shift Summary Pt rcvd new wound dressing from woundcare on 07/15 which was wrapped in Misael wrap by day RN. Pt stated they used to wrap her foot and her leg to prevent foot swelling. I wrapped her foot which later became sore and then unwrapped it. Ancef administration was delayed due to infusion pauses of vancomyacin. No c/o pain or nausea, slept on and off t/o the night.
[2022-07-16 08:03] VITALS: BP 153/90
--- NOTE | 2022-07-16 09:00 | NUR ---
pt laying in bed up ad kaushik in room, a/ox4, pleasant and cooperative with care, follows commands well, denies pain at this time, lungs are clear t/o, resp even and unlabored, no cough noted, hrr, 1+ edema noted to b/l le, ppp+1, cap refill <3 sec, vs stable, afebrile, power glide to left upper arm, piv to ra, s.l. btx4, abd flat soft nontender, voids without diff, skin has wound to left le, wrapped with dressing and dashawn wrap, [place], call light in reach.
[2022-07-16 15:57] VITALS: BP 147/86
[2022-07-16 19:02] VITALS: BP 124/66
--- NOTE | 2022-07-16 19:02 | NUR ---
pt doing ok, denies pain, rewrapped leg with dashawn wrap as it bunched up, sent u/a as ordered, no further changes this shift. call light in reach.
--- NOTE | 2022-07-17 04:31 | NUR ---
SHIFT SUMMARY: PT A&O X4. PT PLEASANT AND COOPERATIVE WITH CARE. POWERGLIDE TO [place] PATENT AND DRAWING/FLUSHING W/O COMPLICATIONS. DRESSING TO L. WOUND C/D/I. PT INDEPENDENT IN ROOM. PT ANTICIPATING TO GO HOME TODAY OR MONDAY. PT ON CONTACT FOR MRSA/PREVIOUS MRSA IN WOUND AND HX MRSA PNEUMONIA. CALL LIGHT IN REACH. BED IN LOWEST POSITION. WILL CONTINUE TO MONITOR.
[2022-07-17 04:32] VITALS: BP 113/57
[2022-07-17 07:35] VITALS: BP 114/66
[2022-07-17 08:46] LABS: Albumin, Blood 2.4 g/dL (3.4-5.0); Albumin/Globulin Ratio 0.6 (0.8-1.8); Bilirubin, Total 0.3 mg/dL (0.1-1.0); Bun/Creatinine Ratio 23.7 (12.0-20.0); Calcium, Blood 8.5 mg/dL (8.5-10.1); Creatinine, Blood 0.63 mg/dL (0.40-1.00); Potassium, Blood 3.9 mmol/L (3.5-5.5); Total Protein, Blood 6.4 g/dL (6.4-8.2)
--- NOTE | 2022-07-17 09:11 | NUR ---
pt laying in bed awake, a/ox4, pleasant and cooperative with care, follows commands well, denies pain, states her night was ok, didn't want breakfast, ordered out, lungs are clear dim in bases, resp even and unlabored, no cough noted, on r/a, resp even and unlabored, no cough noted, hrr, some swelling to left leg, foot, left leg is wrapped in dashawn dressing, power glide to [place] site is clear and patent, btx4, abd flat soft nontender, voids without diff, skin c/w/d except lle as noted above, maew, up ad kaushik in room, call light in reach.
[2022-07-17] MEDS ORDERED: SULTRIDS PO (11:46)
[2022-07-17] MEDS ORDERED: PRED20 PO (11:46)
[2022-07-17] MEDS ORDERED: VISBIOME 112.51 EACH PO (11:47)
--- NOTE | 2022-07-17 12:24 | NUR ---
pt has been discharged to home, faxed new meds to [facility], iv removed intact, went over discharge instructions, she verbalized understanding, redressed her leg dressing and gave her a few supplies, call light in reach.
== END 2022-07-17 12:24 | disposition home or self-care (01) | DRG 872 ==
LOC: ER 21:23 → MEDS 23:52
PROVIDERS: Emergency Medicine; Family Medicine Adult Medicine; ADMIT Internal Medicine
PROC: 3E03329 Introduction of Other Anti-infective into Peripheral Vein, Percutaneous Approach (ICD-10-PCS; principal; 2022-07-11)
PROC: 0HBLXZX Excision of Left Lower Leg Skin, External Approach, Diagnostic (ICD-10-PCS; 2022-07-13)
DX: A41.9 Sepsis, unspecified organism (principal); L97.929 Non-pressure chronic ulcer of unspecified part of left lower leg with unspecified severity; L03.116 Cellulitis of left lower limb; Z68.41 Body mass index [BMI] 40.0-44.9, adult; J45.909 Unspecified asthma, uncomplicated; F15.91 Other stimulant use, unspecified, in remission; F11.91 Opioid use, unspecified, in remission; E83.39 Other disorders of phosphorus metabolism; F17.210 Nicotine dependence, cigarettes, uncomplicated; F32.A Depression, unspecified; F41.9 Anxiety disorder, unspecified; E87.6 Hypokalemia; E66.01 Morbid (severe) obesity due to excess calories; B19.20 Unspecified viral hepatitis C without hepatic coma; B95.0 Streptococcus, group A, as the cause of diseases classified elsewhere; I87.2 Venous insufficiency (chronic) (peripheral); B95.61 Methicillin susceptible Staphylococcus aureus infection as the cause of diseases classified elsewhere; Z86.14 Personal history of Methicillin resistant Staphylococcus aureus infection; Z79.51 Long term (current) use of inhaled steroids; Z90.49 Acquired absence of other specified parts of digestive tract; Z79.899 Other long term (current) drug therapy; Z98.890 Other specified postprocedural states; Z88.8 Allergy status to other drugs, medicaments and biological substances; Z87.09 Personal history of other diseases of the respiratory system; Z87.01 Personal history of pneumonia (recurrent); Z71.6 Tobacco abuse counseling
CPT/HCPCS: 36415; 71046; 73701; 80048; 80053; 80069; 80202; 81025; 82330; 83036; 83605; 83735; 84132; 85025; 85027; 87040; 87070; 87071; 87075; 87077; 87147; 87186; 87205; 88305; 88312; 93005; 93010; 93306; 96361; 96365-59; 96368; 99285-25; A9270; C1751; J0690; J0692; J1200; J1650; J2920; J3370; J7030; J7050; J7060; J7120; J7512; Q9967

== ENCOUNTER → 2022-08-24 | Outpatient (CLI) | payer OTHER ==
[~2022-08-24] MED LIST changes: +CATAPRES0.1 MG PO; +NEURONTIN300 MG PO; +QUETIAPINE FUMA50 M2 PO; +SULTRIDS PO; +VISBIOME 112.51 EACH PO
== END | disposition home or self-care (01) ==
LOC: LAB 13:15 → LAB SHORT 13:15
DX: L08.0 Pyoderma (principal)
CPT/HCPCS: 87070; 87205

== ENCOUNTER → 2023-01-27 | Outpatient (CLI) | payer OTHER ==
[2023-01-30 18:06] LABS: COTININE, URN, SCREEN Negative ng/mL (Cutoff 100)
== END ==
LOC: LAB 17:18 → LAB SHORT 17:18
PROVIDERS: Physician Assistant
DX: I87.2 Venous insufficiency (chronic) (peripheral) (principal); Z72.0 Tobacco use

== ENCOUNTER 2024-03-22 06:30 | Day surgery (SDC) | payer OTHER ==
[2024-03-22] MEDS ORDERED: Lidocaine HCl 4% Topical Soln 50 ML BTL ONE (13:51)
== END 2024-03-22 23:00 | disposition home or self-care (01) ==
LOC: WOUND 06:30
DX: I87.313 Chronic venous hypertension (idiopathic) with ulcer of bilateral lower extremity (principal); L97.812 Non-pressure chronic ulcer of other part of right lower leg with fat layer exposed; L97.822 Non-pressure chronic ulcer of other part of left lower leg with fat layer exposed; I73.9 Peripheral vascular disease, unspecified; I87.2 Venous insufficiency (chronic) (peripheral); F17.210 Nicotine dependence, cigarettes, uncomplicated
CPT/HCPCS: G0463

== ENCOUNTER 2024-04-09 08:28 | Day surgery (SDC) | payer OTHER | END 2024-04-09 22:50 | disposition home or self-care (01) | LOC: WOUND 08:28 | DX: I87.313 Chronic venous hypertension (idiopathic) with ulcer of bilateral lower extremity (principal); L97.822 Non-pressure chronic ulcer of other part of left lower leg with fat layer exposed; L97.812 Non-pressure chronic ulcer of other part of right lower leg with fat layer exposed; I87.2 Venous insufficiency (chronic) (peripheral); I73.9 Peripheral vascular disease, unspecified | CPT/HCPCS: G0463 ==

== ENCOUNTER 2024-04-19 02:16 | Day surgery (SDC) | payer OTHER ==
[2024-04-19] MEDS ORDERED: Lidocaine HCl 4% Cream 5 GM ONE (13:15)
== END 2024-04-19 23:00 | disposition home or self-care (01) ==
LOC: WOUND 02:16
DX: I87.313 Chronic venous hypertension (idiopathic) with ulcer of bilateral lower extremity (principal); L97.822 Non-pressure chronic ulcer of other part of left lower leg with fat layer exposed; L97.812 Non-pressure chronic ulcer of other part of right lower leg with fat layer exposed; I87.2 Venous insufficiency (chronic) (peripheral); I73.9 Peripheral vascular disease, unspecified
CPT/HCPCS: A9270; G0463

== ENCOUNTER 2024-04-26 05:09 | Day surgery (SDC) | payer OTHER | END 2024-04-26 23:00 | disposition home or self-care (01) | LOC: WOUND 05:09 | DX: I87.313 Chronic venous hypertension (idiopathic) with ulcer of bilateral lower extremity (principal); L97.812 Non-pressure chronic ulcer of other part of right lower leg with fat layer exposed; L97.822 Non-pressure chronic ulcer of other part of left lower leg with fat layer exposed; I87.2 Venous insufficiency (chronic) (peripheral); I73.9 Peripheral vascular disease, unspecified | CPT/HCPCS: G0463 ==

== ENCOUNTER 2024-05-04 17:28 | Emergency (ER) | payer OTHER ==
[~2024-05-04] VITALS: Ht 160 cm; Wt 113.4 kg
[2024-05-04] MEDS ORDERED: METH10 PO (17:43)
[2024-05-04] MEDS ORDERED: Methadone HCL 10 MG TAB PO ONE (18:35)
[2024-05-04 18:46] VITALS: BP 133/82
== END 2024-05-04 18:48 | disposition other institution (70) ==
LOC: ER 17:28
DX: Z76.0 Encounter for issue of repeat prescription (principal); Z88.5 Allergy status to narcotic agent; Z88.1 Allergy status to other antibiotic agents; J45.909 Unspecified asthma, uncomplicated; F17.210 Nicotine dependence, cigarettes, uncomplicated
CPT/HCPCS: 99281; A9270

== ENCOUNTER 2024-05-10 03:32 | Day surgery (SDC) | payer OTHER ==
[~2024-05-10 03:32] MED LIST changes: +METH10 PO
== END 2024-05-10 23:00 | disposition home or self-care (01) ==
LOC: WOUND 03:32
DX: I87.313 Chronic venous hypertension (idiopathic) with ulcer of bilateral lower extremity (principal); L97.822 Non-pressure chronic ulcer of other part of left lower leg with fat layer exposed; L97.812 Non-pressure chronic ulcer of other part of right lower leg with fat layer exposed; I87.2 Venous insufficiency (chronic) (peripheral); I73.9 Peripheral vascular disease, unspecified
CPT/HCPCS: G0463

== ENCOUNTER 2024-06-01 19:24 | Emergency (ER) | payer OTHER ==
[~2024-06-01] VITALS: Ht 160 cm; Wt 120.2 kg
[2024-06-01] MEDS ORDERED: Amoxicillin/Clavulanate K 875 MG Tab PO ONE (22:00)
[2024-06-01] MEDS ORDERED: AMOCLA875 PO (22:02)
[2024-06-01 22:45] VITALS: BP 134/76
== END 2024-06-01 22:52 | disposition home or self-care (01) ==
LOC: ER 19:24
DX: S81.851A Open bite, right lower leg, initial encounter (principal); I87.2 Venous insufficiency (chronic) (peripheral); Z88.8 Allergy status to other drugs, medicaments and biological substances; Z88.1 Allergy status to other antibiotic agents; Z79.899 Other long term (current) drug therapy; J45.909 Unspecified asthma, uncomplicated; F17.210 Nicotine dependence, cigarettes, uncomplicated; W54.0XXA Bitten by dog, initial encounter
CPT/HCPCS: 99283; A9270

== ENCOUNTER 2024-06-03 11:23 | Day surgery (SDC) | payer OTHER ==
[~2024-06-03 11:23] MED LIST changes: +AMOCLA875 PO
== END 2024-06-03 23:00 | disposition home or self-care (01) ==
LOC: WOUND 11:23
DX: I87.313 Chronic venous hypertension (idiopathic) with ulcer of bilateral lower extremity (principal); L97.822 Non-pressure chronic ulcer of other part of left lower leg with fat layer exposed; L97.812 Non-pressure chronic ulcer of other part of right lower leg with fat layer exposed; I87.2 Venous insufficiency (chronic) (peripheral); I73.9 Peripheral vascular disease, unspecified
CPT/HCPCS: G0463

== ENCOUNTER 2024-06-11 04:30 | Day surgery (SDC) | payer OTHER | END 2024-06-11 23:00 | disposition home or self-care (01) | LOC: WOUND 04:30 | DX: I87.313 Chronic venous hypertension (idiopathic) with ulcer of bilateral lower extremity (principal); I87.2 Venous insufficiency (chronic) (peripheral); I73.9 Peripheral vascular disease, unspecified | CPT/HCPCS: G0463 ==

== ENCOUNTER 2024-06-24 05:55 | Day surgery (SDC) | payer OTHER ==
[2024-06-24] MEDS ORDERED: Lidocaine HCl 4% Cream 5 GM ONE (10:30)
== END 2024-06-24 23:00 | disposition home or self-care (01) ==
LOC: WOUND 05:55
DX: I87.313 Chronic venous hypertension (idiopathic) with ulcer of bilateral lower extremity (principal); L97.822 Non-pressure chronic ulcer of other part of left lower leg with fat layer exposed; L97.812 Non-pressure chronic ulcer of other part of right lower leg with fat layer exposed; I87.2 Venous insufficiency (chronic) (peripheral); I73.9 Peripheral vascular disease, unspecified
CPT/HCPCS: A9270; G0463

== ENCOUNTER 2024-06-26 02:31 | Emergency (ER) | payer OTHER ==
[~2024-06-26] VITALS: Ht 157.5 cm; Wt 113.4 kg
[2024-06-26 02:38] VITALS: BP 137/86
[2024-07-10] MEDS ORDERED: Pentoxifylline400 MG PO (14:52)
== END 2024-06-26 03:08 | disposition left against medical advice (07) ==
LOC: ER 02:31
DX: I83.009 Varicose veins of unspecified lower extremity with ulcer of unspecified site (principal); Z53.21 Procedure and treatment not carried out due to patient leaving prior to being seen by health care provider

== ENCOUNTER 2024-07-07 19:45 | Emergency (ER) | payer OTHER ==
[~2024-07-07] VITALS: Ht 160 cm; Wt 136.1 kg
[2024-07-07 21:15] LABS: BASOPHILS ABSOLUTE AUTO 0.03 K/mm3 (0.00-0.23); BASOPHILS PERCENT AUTO 0 % (0-2); EOSINOPHILS ABSOLUTE AUTO 0.19 K/mm3 (0.00-0.68); EOSINOPHILS PERCENT AUTO 2 % (0-6); Hematocrit 39.5 % (33.0-51.0); Hemoglobin 13.1 g/dL (11.5-16.0); IMMATURE GRAN ABSOLUTE AUTO 0.03 K/mm3 (0.00-0.10); IMMATURE GRAN PERCENT AUTO 0 % (0-1); LYMPHOCYTES PERCENT AUTO 35 % (21-46); MONOCYTES ABSOLUTE AUTO 0.54 K/mm3 (0.16-1.47); MONOCYTES PERCENT AUTO 7 % (4-13); Mean Corpuscular HGB 30.5 pg (26.0-34.0); Mean Corpuscular HGB Conc 33.2 g/dL (31.5-36.5); Mean Corpuscular Volume 92 fL (80-100); Mean Platelet Volume 10.1 fL (9.1-12.4); NEUTROPHILS ABSOLUTE AUTO 4.27 K/mm3 (1.96-9.15); NEUTROPHILS PERCENT AUTO 55 % (41-73); Platelet Count 304 K/mm3 (150-400); RDW Coefficient Variation 15.4 % (11.7-14.2); RDW Standard Deviation 51.5 fL (35.1-46.3); White Blood Cell Count 7.76 K/mm3 (4.00-11.30)
[2024-07-07 21:34] LABS: Albumin, Blood 2.7 g/dL (3.4-5.0); Albumin/Globulin Ratio 0.5 (0.8-1.8); Bilirubin, Total 0.5 mg/dL (0.1-1.0); Bun/Creatinine Ratio 22.3 (12.0-20.0); Calcium, Blood 8.3 mg/dL (8.5-10.1); Creatinine, Blood 0.76 mg/dL (0.40-1.00); Globulin, Blood 5.4 g/dL (2.2-4.0); Potassium, Blood 3.5 mmol/L (3.5-5.5); Total Protein, Blood 8.1 g/dL (6.4-8.2)
[2024-07-07] MEDS ORDERED: Methocarbamol 500 MG Tab PO ONE (23:00)
[2024-07-08] MEDS ORDERED: Ketorolac Tromethamine 15mg Vial IV ONE (00:30)
[2024-07-08] MEDS ORDERED: TIZA4 PO (01:38)
[2024-07-08 01:50] VITALS: BP 127/84
== END 2024-07-08 01:52 | disposition home or self-care (01) ==
LOC: ER 19:45
PROVIDERS: Student in an Organized Health Care Education/Training Program
DX: I83.009 Varicose veins of unspecified lower extremity with ulcer of unspecified site (principal); L97.919 Non-pressure chronic ulcer of unspecified part of right lower leg with unspecified severity; L97.929 Non-pressure chronic ulcer of unspecified part of left lower leg with unspecified severity; I10 Essential (primary) hypertension; J45.909 Unspecified asthma, uncomplicated; F17.210 Nicotine dependence, cigarettes, uncomplicated; Z98.890 Other specified postprocedural states; Z88.8 Allergy status to other drugs, medicaments and biological substances; Z79.899 Other long term (current) drug therapy; Z59.89 Other problems related to housing and economic circumstances
CPT/HCPCS: 80053; 85025; 93970; A9270; J1885

== ENCOUNTER 2024-07-08 16:02 | Emergency (ER) | payer OTHER ==
[~2024-07-08] VITALS: Ht 157.5 cm; Wt 113.4 kg
[~2024-07-08 16:02] MED LIST changes: +TIZA4 PO
[2024-07-08 16:51] VITALS: BP 133/73
[2024-07-08] MEDS ORDERED: Methadone HCL 10 MG TAB PO ONE (17:15)
[2024-07-10] MEDS ORDERED: Pentoxifylline400 MG PO (14:52)
== END 2024-07-08 17:44 | disposition home or self-care (01) ==
LOC: ER 16:02
DX: Z76.89 Persons encountering health services in other specified circumstances (principal); F11.20 Opioid dependence, uncomplicated; J45.909 Unspecified asthma, uncomplicated; Z88.8 Allergy status to other drugs, medicaments and biological substances; Z79.899 Other long term (current) drug therapy
CPT/HCPCS: 99281; A9270

== ENCOUNTER 2025-01-22 13:48 | Emergency (ER) | payer OTHER ==
[~2025-01-22] VITALS: Ht 160 cm; Wt 99.8 kg
[~2025-01-22 13:48] MED LIST changes: +ASCO500 PO; +DOCU100 PO; +FEROSUL325 M1 PO; +MIRALAX17 GM PO; +Pentoxifylline400 MG PO
[2025-01-22 13:50] VITALS: BP 137/80
== END 2025-01-22 15:44 | disposition home or self-care (01) ==
LOC: ER 13:48
DX: Z76.89 Persons encountering health services in other specified circumstances (principal); F17.210 Nicotine dependence, cigarettes, uncomplicated; Z88.8 Allergy status to other drugs, medicaments and biological substances; Z79.899 Other long term (current) drug therapy; Z59.89 Other problems related to housing and economic circumstances
CPT/HCPCS: 99281; A9270